=== PATIENT | male | born 1965 | race Caucasian/White ===

== ENCOUNTER 2018-04-29 17:58 | Emergency (ER) | payer MEDICARE, MEDICAID, SELFPAY ==
[2018-04-29 18:06] VITALS: BP 155/71; PULSE 66; RESP 16; TEMP 37.3; O2SAT 97
--- NOTE | 2018-04-29 19:01 | DI.REPORT_ITS ---
SYMPTOM/DIAGNOSIS: SKIN INFECTION, ? FREE AIR RIGHT TIBIA/FIBULA: Soft tissue swelling is demonstrated. The bony structures are unremarkable with no evidence of an acute fracture or dislocation. There is no evidence of free air. No soft tissue foreign body is evident. SUMMARY: Superficial edema. No other acute abnormality seen.
--- NOTE | 2018-04-29 19:05 | ED.GENADUL_ITS ---
Disposition Clinical Impression: Bilateral lower extremity edema, Ulcers of both lower legs, Cellulitis of leg, right Disposition: HOME Condition: Fair Instructions: Cellulitis (ED) Additional Instructions: Encourage elevation of lower extremities. Keep compressive dressings on until evaluated a wound. I have asked her care according to help facilitate follow-up , he should be seen this week by wound care. Take antibiotics as prescribed. Even if symptoms improve please take the entire course. Encourage water intake. If you develop fever/chills, increased pain, spreading of the redness or other new/worsening symptoms please seek care urgently once again. Please monitor glucose closely. Follow up with primary care the beginning of next week for reassessment and to recheck your potassium levels as this can go up with antibiotics. Take probiotics while on antibiotics. Prescriptions: Cephalexin [Keflex] 500 mg PO BID #14 capsule Sulfameth/Trimeth Ds [Bactrim Ds Tablet] 1 each PO BID #14 tab Referrals: Dmitriy Oliver [Primary Care Provider] - Benjamín Vazquez DO [ [facility] STAFF PHYSICIAN] - Medical Decision Making - Lab Data Laboratory Tests 04/29/18 04/29/18 19:15 19:15 WBC 8.47 RBC 4.10 L Hgb 12.3 L Hct 37.1 L MCV 90.5 MCH 30.0 MCHC 33.2 RDW 13.2 Plt Count 335 MPV 10.8 Immature Gran % 0.1 Neutrophils % 71.7 Lymphocytes % 17.9 Monocytes % 6.4 Eosinophils % 3.4 Basophils % 0.5 Absolute Neutrophils 6.07 Absolute Lymphocytes 1.52 Absolute Monocytes 0.54 Absolute Eosinophils 0.29 Absolute Basophils 0.04 Sodium 137 Potassium 4.6 Chloride 103 Carbon Dioxide 25.9 Anion Gap 8.1 BUN 9 Creatinine 1.24 Estimated GFR/1.73 m2 >= 60.00 Glucose 325 H Calcium 8.4 L Total Bilirubin 0.2 AST 21 ALT 42 Alkaline Phosphatase 62 Total Protein 6.8 Albumin 3.1 L Results reviewed for labs ordered during visit: Yes - Radiology Data Radiology results: report reviewed X-ray reviewed by radiologist. They advised that Bones are unremarkable no acute fracture. No dislocation. Mild edema seen superficial soft tissues about the leg. No radiopaque foreign body. No plain film evidence of free air.. - Medical Decision Making Patient presents today with chief complaint of bilateral lower extremity edema and wounds. Was been present for the past month. Has not been evaluated by primary care. I am concerned that 1 of the wounds on the right lower extremity is infected with surrounding cellulitis. Running the area of opening the skin is warm, tender and erythematous. Patient will be treated for infection. He reports that these initially began as a bubble and then developed into the eye is opened wounds that does continue to grow. He is feeling the bubbles I am unable to appreciate any crepitus on exam. However, given his description I feel that x-ray to evaluate for any free air is appropriate. We will also evaluate baseline labs. Discussed this plan with the patient and his daughter were in agreement X-rays not suggestive of any free air. No evidence of necrotizing fasciitis. Laboratory evaluation significant for elevated glucose. Patient reports that is around this time that he typically reduces his insulin this is probably why it is elevated. Advised he try to monitor this more closely as his diabetes is likely contributing to his current condition. In regard to his leg wounds, patient will be placed on antibiotics. I would like him to follow-up with wound care soon as possible. Have asked her intensive care nurse help facilitate follow-up. Patient will be placed on Keflex and Bactrim. I did discuss with Dr. Vicente as I am considering placing the patient on Bactrim as he is on a KENNEDI inhibitor. Potassium today is 4.6. Dr. Vicente to discuss alternative options and feel that this is the safest option for the patient. I have asked that he follow-up with primary care beginning next week to reassess potassium levels. Nursing staff has dressed the wounds and applied compression dressings. I encouraged elevation as much as possible of the lower extremities. We discussed new/worsening symptoms and when to seek care urgently once again. All of their questions and concerns were addressed in agreement this plan. History of Present Illness - General Chief complaint: Cellulitis Stated complaint: SKIN LESIONS Time Seen by Provider: 04/29/18 18:59 Source: patient, family, RN notes reviewed Mode of arrival: ambulatory Limitations: no limitations - History of Present Illness Initial comments: Patient is a 52-year-old male, covered by his daughter, with chief complaint of bilateral lower extremity skin openings. Patient has history of diabetes, anxiety, depression, hypertension, osteomyelitis, depression, GERD, neuropathy, hyperlipidemia. Patient has had removal of his second toe right foot secondary to infection. This was several years ago. 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 Patient reports that for the past month he has been noting a small bump form on his skin which then wraps and enlarges into a large open wound. States these open wounds then state chronically. He does endorse discomfort. States that he has been having some bilateral lower extremity edema, particularly in the ankles. He reports that this is typical. Patient walks with a cane at baseline. He is noted surrounding erythema particularly along the lateral aspect of the right lower extremity. Patient does have chronic neuropathy, no change in his recently. He denies any fevers or chills. Denies any chest pain , shortness of breath, nausea/vomiting. Denies any fatigue, weight loss or other systemic problems. Denies any trauma to the lower extremities. - Related Data Blood-Glucose Meter [Blood Glucose Meter] 1 each ONCE #1 each 01/12/15 Calcium Carb *Tums* [Tums] 500 mg CH Q4H PRN PRN chew 04/22/15 Lisinopril/Hydrochlorothiazide [Lisinopril-Hctz 20-12.5 mg Tab] 1 tab-cap PO DAILY #90 tab-cap 07/09/17 Amlodipine Besylate 5 mg PO DAILY #90 tab-cap 09/16/17 Dextrose [Glucose] 4 gm PO BID PRN #60 tab.chew 10/31/17 Pantoprazole Sodium 40 mg PO DAILY #90 tabcr 10/31/17 Insulin Glargine [Lantus Solostar] 30 u SC HS #2 vial 12/08/17 Mirtazapine 30 mg PO HS #30 tab-cap 01/05/18 Sertraline HCl [Zoloft] 200 mg PO DAILY #180 tab-cap 01/27/18 Amitriptyline [Elavil] 10 mg PO HS #90 tab-cap 02/24/18 Gabapentin [Neurontin] 1,600 mg PO HS #180 tab-cap 02/24/18 Insulin Aspart [NovoLOG Flexpen] 5 units SC 0800,1200,1700 #10 syr 02/24/18 Lancets [Onetouch Lancets] 1 each MC BID #100 each 02/24/18 Onetouch Ultra Test Strips 1 each MC BID #100 strip 02/24/18 Pen Needle, Diabetic [Insulin Pen Needle] 1 each SC TID #100 ndl 02/24/18 Pravastatin Sodium [Pravachol] 20 mg PO QPM #90 tab-cap 02/24/18 Nicotine Polacrilex [Nicotine Gum] 4 mg PO q 1-2 h prn #100 piece of gum MDD 10 pieces 02/27/18 Clonazepam [Klonopin] 1 tab PO BID PRN #60 tab-cap 04/14/18 Cephalexin [Keflex] 500 mg PO BID #14 capsule 04/29/18 Sulfameth/Trimeth Ds [Bactrim Ds Tablet] 1 each PO BID #14 tab 04/29/18 Allergies Allergy/AdvReac Type Severity Reaction Status Date / Time cinnamon Allergy Intermediate rash in Unverified 04/29/18 18:10 mouth Review of Systems Constitutional: no symptoms reported. denies: chills, fever, malaise Eyes: denies: vision change Respiratory: no symptoms reported. denies: cough, shortness of breath Cardiovascular: denies: chest pain, palpitations, dyspnea on exertion Gastrointestinal: denies: abdominal pain, nausea, vomiting Genitourinary: denies: urgency (denies urinary or bowel changes) Musculoskeletal: as per HPI Skin: as per HPI Neurological: as per HPI Past Medical History - Past Medical History Medical history: diabetes, GERD, hyperlipidemia, hypertension Neuropathy, osteomyelitis Surgical history: non-contributory Psychiatric history: anxiety, depression General Exam - General Limitations: no limitations General appearance: alert, in no apparent distress - Head Head exam: Present: atraumatic - Eye Eye exam: Present: normal apperance - Respiratory Respiratory exam: Present: normal lung sounds bilaterally. Absent: respiratory distress - Cardiovascular Cardiovascular Exam: Present: regular rate, normal rhythm, normal heart sounds - Extremities Exam Extremities exam: Absent: normal inspection (Exam the patient's bilateral lower extremities significant for bilateral lower extremity edema. Patient has multiple areas of ulceration. None of these ulcers are weeping. Bones appear quite dry. On the left lower extremity he has a wound on the lateral aspect that is 4 x 2 cm, irregularly-shaped. On the right, patient has 2 primary ulcers. One in the inferior lateral aspect of the right leg is 2.5 x 2 cm. This was surrounded with erythema, warmth and discomfort with palpation. Ulcer more proximal to this is not to be 2 cm x 1 cm. Is good range of motion. No posterior calf tenderness.) - Neurological Exam Neurological exam: Present: alert, abnormal gait (Patient ambulates with cane. Patient and his daughter reports this is unchanged from baseline) - Psychiatric Psychiatric exam: Present: normal affect, normal mood - Skin Skin exam: Absent: intact (As above) Course Vital Signs - 24 hr 04/29/18 18:06 Temperature 37.3 C Pulse 66 Respiratory 16 Rate Blood Pressure 155/71 Pulse Oximetry 97
[2018-04-29 19:31] LABS: Abs Immature Grans 0.01 k/cumm (0.0-0.09); Absolute Basophil Count 0.04 k/cumm (0.0-0.2); Absolute Eosinophil Count 0.29 k/cumm (0.0-0.7); Absolute Lymphocyte Count 1.52 k/cumm (1.2-3.4); Absolute Monocyte Count 0.54 k/cumm (0.11-0.7); Absolute Neutrophil Count 6.07 k/cumm (1.2-6.7); Basophils % 0.5; Eosinophils % 3.4; HCT 37.1 % (40.0-50.0); HGB 12.3 g/dL (13.5-17.5); Immature Grans % 0.1; Lymphocytes % 17.9; Mean Corp. HGB Concentration 33.2 g/dL (32.0-36.0); Mean Corpuscular Volume 90.5 fL (80-95); Mean Platelet Volume 10.8 fL (8.0-11.0); Monocytes % 6.4; Neutrophils % 71.7; Platelet Count 335 x1000/uL (130-400); RBC Distribution Width 13.2 % (11.8-14.1); White Blood Cell Count 8.47 k/cumm (4.4-10.8)
[2018-04-29 19:44] LABS: ALT 42 U/L (12-78); AST 21 U/L (15-37); Albumin 3.1 g/dL (3.4-5.0); Alkaline Phosphatase 62 U/L (46-116); Anion Gap 8.1 mmol/L (3-11); BUN 9 mg/dL (7-18); Bilirubin, Total 0.2 mg/dL (0.2-1.0); CO2 25.9 mmol/L (21.0-32.0); CREATININE 1.24 mg/dL (0.70-1.30); Calcium 8.4 mg/dL (8.5-10.1); Chloride 103 mmol/L (98-107); Glucose 325 mg/dL (70-100); Potassium 4.6 mmol/L (3.5-5.1); Sodium 137 mmol/L (136-145); Total Protein 6.8 g/dL (6.4-8.2)
--- NOTE | 2018-04-29 20:26 | DI.VRAD_ITS ---
EXAM: XR Right Tibia and Fibula, 2 Views CLINICAL HISTORY: 52 years old, male; Pain; Lower leg; Right; Patient HX: Skin infection, questioning free air. TECHNIQUE: Frontal and lateral views of the right tibia and fibula. COMPARISON: No relevant prior studies available. FINDINGS: Bones/joints: Unremarkable. No acute fracture. No dislocation. Soft tissues: Mild edema is seen in the superficial soft tissues about the leg. No radiopaque foreign body. Other findings: No plain film evidence of free air as queried. IMPRESSION: Superficial edema, otherwise no acute findings. Dictated and Authenticated by: Jonathan Em MD. Ordering:JYOTHI GRANADO MD
[2018-04-29] MEDS: Sulfameth/Trimeth DS TAB 2 TAB PO (21:30)
[2018-04-29] MEDS: Cephalexin 500 MG CAP 1000 MG PO (21:30)
[2018-04-29 21:33] VITALS: BP 155/71; PULSE 66; RESP 16; TEMP 37.3; O2SAT 97
--- NOTE | 2018-04-30 10:42 | PDOC.ERCMPRO ---
Care Management Progress Note 04/30-Vivi requested assistance with a PCP (Benito) f/u in 1-2 days for chronic bilateral lower extremity wounds. Patient will also need wound care. Referral faxed to [facility] this am for wound care and f/u appt.
--- NOTE | 2018-04-30 11:23 | CMPROGNOTE_ITS ---
Care Management Progress Note 04/30-Vivi requested assistance with a PCP (Benito) f/u in 1-2 days for chronic bilateral lower extremity wounds. Patient will also need wound care. Referral faxed to [facility] this am for wound care and f/u appt.
== END 2018-04-29 21:33 | disposition home or self-care (01) ==
PROVIDERS: Physician Assistant; Emergency Provider Student in an Organized Health Care Education/Training Program; PCP Family Medicine
DX: R60.0 Localized edema (principal); L97.229 Non-pressure chronic ulcer of left calf with unspecified severity; L97.219 Non-pressure chronic ulcer of right calf with unspecified severity; L03.115 Cellulitis of right lower limb; I10 Essential (primary) hypertension; E11.622 Type 2 diabetes mellitus with other skin ulcer; Z79.4 Long term (current) use of insulin
CPT/HCPCS: 36415; 80053; 99284; 73590; 85025

== ENCOUNTER → 2018-05-01 12:37 | Outpatient (REF) | payer MEDICARE, MEDICAID, SELFPAY | LOC: LBN 12:37 | PROVIDERS: PCP Family Medicine; Visit Provider Family Medicine | DX: S81.801D Unspecified open wound, right lower leg, subsequent encounter (principal) | CPT/HCPCS: 87077; 87070; 87186; 87205 ==

== ENCOUNTER 2018-06-29 15:02 | Emergency (ER) | payer MEDICARE, SELFPAY ==
[2018-06-29 15:42] VITALS: BP 166/65; PULSE 68; RESP 22; TEMP 36.8; O2SAT 97
--- NOTE | 2018-06-29 16:09 | W.ED.GENAD ---
Discharge Plan Discharge Details Chief Complaint: Diabetes Primary Care Provider: Dmitriy Oliver ED Provider: Homar Gan Home Meds and New Rx's Prescriptions: Continue lisinopril-hydrochlorothiazide 1 EACH tablet 1 tab-cap PO DAILY Qty: 90 RF: 3 amlodipine 5 MG tablet 5 mg PO DAILY Qty: 90 RF: 3 pantoprazole 40 MG tablet,delayed release (DR/EC) 40 mg PO DAILY Qty: 90 RF: 3 glucose 4 GM tablet,chewable 4 gm PO BID PRNQty: 60 RF: 2 mirtazapine 30 MG tablet 30 mg PO HS Qty: 30 RF: 11 sertraline [Zoloft] 100 MG tablet 200 mg PO DAILY Qty: 180 RF: 4 insulin aspart U-100 [Novolog Flexpen U-100 Insulin] 300 UNITS/3 ML insulin pen 5 units Sub-Q 0800,1200,1700 Qty: 10 RF: 5 pen needle, diabetic 1 EACH needle 1 ea Sub-Q TID Qty: 100 RF: 11 clonazepam [Klonopin] 1 MG tablet 1 tab PO BID PRNQty: 60 RF: 2 Lactobacillus acidophilus 1 EACH capsule 1 ea PO TID Qty: 30 RF: 0 gabapentin [Neurontin] 800 MG tablet 1,600 mg PO HS Qty: 180 RF: 3 amitriptyline 10 MG tablet 10 mg PO HS Qty: 90 RF: 3 pravastatin [Pravachol] 20 MG tablet 20 mg PO QPM Qty: 90 RF: 4 lancets [OneTouch UltraSoft Lancets] 1 EACH misc 1 ea Miscellaneous BID Qty: 100 RF: 12 ONETOUCH ULTRA TEST STRIPS 1 EACH strip 1 ea Miscellaneous BID Qty: 100 RF: 12 blood-glucose meter misc 1 ea Miscellaneous ONCE Qty: 1 RF: 0 nicotine (polacrilex) 4 mg gum 4 mg PO q 1-2 h prn MDD 10 pieces Qty: 100 RF: 11 calcium carbonate 500 MG tablet,chewable 500 mg CH Q4H PRN PRN (Reason: DYSPEPSIA) RF: 0 sulfamethoxazole-trimethoprim 1 TAB tablet 1 ea PO BID Qty: 14 RF: 0 insulin glargine [Lantus Solostar U-100 Insulin] 100 UNIT/1 ML insulin pen 30 u Sub-Q HS Qty: 2 RF: 3 Discharge Instructions Additional Instructions: [facility] has arranged to fill your prescription. Please resume diabetic control as previously prescribed with long acting insulin in the evening. Call your doctors office in the morning for a followup appointment this week. Return to the ER for any acute concerns. Medical Decision Making 52yom presents from home with family after running out of coverage of typical 35u Lantus QHS and now taking 5u QHS for 4-5 days, with humalog on 'loose' sliding scale. Otherwise well, denies systemic complaints. Exam reassuring and he is in no distress. Screening labs obtained and patient seen by care management. CBC reveals WBC 9. Comp is reassuring, glucose 242. No gap. Stable and appropriate for outpatient management. Care management arranged for [facility] to fill patients Rx, he will followup with PMD. Lab Data Lab results reviewed: Yes I reviewed the patient's lab results. Laboratory Tests Range/Units 06/29/18 06/29/18 16:13 16:13 WBC (4.4-10.8) k/cumm 9.92 RBC (4.50-6.00) m/cumm 4.77 Hgb (13.5-17.5) g/dL 14.1 Hct (40.0-50.0) % 42.8 MCV (80-95) fL 89.7 MCH (27.0-33.0) pg 29.6 MCHC (32.0-36.0) g/dL 32.9 RDW (11.8-14.1) % 13.6 Plt Count (130-400) x1000/uL 359 MPV (8.0-11.0) fL 10.2 Immature Gran % 0.2 Neutrophils % 73.8 Lymphocytes % 17.3 Monocytes % 5.5 Eosinophils % 2.7 Basophils % 0.5 Absolute Neutrophils (1.2-6.7) k/cumm 7.31 H Absolute Lymphocytes (1.2-3.4) k/cumm 1.72 Absolute Monocytes (0.11-0.7) k/cumm 0.55 Absolute Eosinophils (0.0-0.7) k/cumm 0.27 Absolute Basophils (0.0-0.2) k/cumm 0.05 Sodium (136-145) mmol/L 139 Potassium (3.5-5.1) mmol/L 4.7 Chloride (98-107) mmol/L 103 Carbon Dioxide (21.0-32.0) mmol/L 28.5 Anion Gap (3-11) mmol/L 7.5 BUN (7-18) mg/dL 11 Creatinine (0.70-1.30) mg/dL 1.19 Estimated GFR/1.73 m2 (mL/min/1.73m2) >= 60.00 Glucose (70-100) mg/dL 242 H Calcium (8.5-10.1) mg/dL 9.2 Total Bilirubin (0.2-1.0) mg/dL 0.3 AST (15-37) U/L 21 ALT (12-78) U/L 46 Alkaline Phosphatase (46-116) U/L 79 Total Protein (6.4-8.2) g/dL 7.7 Albumin (3.4-5.0) g/dL 3.9 HPI General Mode of arrival: ambulatory. Date/Time Provider Initiated Documentation: 06/29/18 15:48. Limitations to Documentation: no limitations. Information obtained by: patient and family. History of Present Illness described as moderate, Quality is described as constant, Patient started experiencing this day(s) and it has been constant. No relieving factors improve symptom(s), No exacerbating factors reported . HPI Narrative: 52yom with IDDM, has run out of coverage for longacting Lantus and dropped dosae from 35u QHS to 5u QHS for past 5 days. Glucose now 400's. No weakness, thirst, fever, chills. Related Data Home Medications Medication Instructions Recorded Confirmed calcium carbonate 500 mg CH Q4H PRN PRN chew 04/22/15 04/29/18 lisinopril-hydrochlorothiazide 1 tab-cap PO DAILY #90 tab-cap 07/09/17 amlodipine 5 mg PO DAILY #90 tab-cap 09/16/17 glucose 4 gm PO BID PRN #60 tab.chew 10/31/17 pantoprazole 40 mg PO DAILY #90 tabcr 10/31/17 mirtazapine 30 mg PO HS #30 tab-cap 01/05/18 sertraline [Zoloft] 200 mg PO DAILY #180 tab-cap 01/27/18 insulin aspart U-100 [Novolog 5 units SUB-Q 0800,1200,1700 #10 02/24/18 Flexpen U-100 Insulin] syr pen needle, diabetic #100 ndl 02/24/18 clonazepam [Klonopin] 1 tab PO BID PRN #60 tab-cap 04/14/18 sulfamethoxazole-trimethoprim 1 ea PO BID #14 tab 04/29/18 Lactobacillus acidophilus 1 ea PO TID #30 tab-cap 04/30/18 amitriptyline 10 mg PO HS #90 tab-cap 05/18/18 gabapentin [Neurontin] 1,600 mg PO HS #180 tab-cap 05/18/18 pravastatin [Pravachol] 20 mg PO QPM #90 tab-cap 05/18/18 lancets [OneTouch UltraSoft #100 ea 05/21/18 Lancets] blood-glucose meter #1 ea 06/05/18 nicotine (polacrilex) 4 mg gum 4 mg PO q 1-2 h prn #100 piece of 06/16/18 gum MDD 10 pieces insulin glargine [Lantus Solostar 30 u SUB-Q HS #2 vial 06/29/18 U-100 Insulin] Previous Rx's Medication Instructions Recorded calcium carbonate 500 mg CH Q4H PRN PRN chew 04/22/15 lisinopril-hydrochlorothiazide 1 tab-cap PO DAILY #90 tab-cap 07/09/17 amlodipine 5 mg PO DAILY #90 tab-cap 09/16/17 pantoprazole 40 mg PO DAILY #90 tabcr 10/31/17 mirtazapine 30 mg PO HS #30 tab-cap 01/05/18 sertraline [Zoloft] 200 mg PO DAILY #180 tab-cap 01/27/18 insulin aspart U-100 [Novolog 5 units SUB-Q 0800,1200,1700 #10 02/24/18 Flexpen U-100 Insulin] syr pen needle, diabetic #100 ndl 02/24/18 sulfamethoxazole-trimethoprim 1 ea PO BID #14 tab 04/29/18 Lactobacillus acidophilus 1 ea PO TID #30 tab-cap 04/30/18 amitriptyline 10 mg PO HS #90 tab-cap 05/18/18 gabapentin [Neurontin] 1,600 mg PO HS #180 tab-cap 05/18/18 pravastatin [Pravachol] 20 mg PO QPM #90 tab-cap 05/18/18 lancets [OneTouch UltraSoft #100 ea 05/21/18 Lancets] blood-glucose meter #1 ea 06/05/18 nicotine (polacrilex) 4 mg gum 4 mg PO q 1-2 h prn #100 piece of 06/16/18 gum MDD 10 pieces insulin glargine [Lantus Solostar 30 u SUB-Q HS #2 vial 06/29/18 U-100 Insulin] Allergies Allergy/AdvReac Type Severity Reaction Status Date / Time cinnamon Allergy Intermediate rash in Unverified 04/29/18 18:10 mouth General Stated Complaint: Diabetes DION: 4 Review of Systems Review of Systems 8 reviewed and o/w - PFSH Social History Smoking/Tobacco Use Status: Never how long ago did patient quit smoking: HASN'T CHEWED X 1.5 MOS 02/24/18 Exam Const General: cooperative, healthy appearing, comfortable and no acute distress HENMT Head: normal to inspection and normocephalic Chest Chest: normal inspection of the chest and normal palpation of entire chest wall Resp Effort & Inspection: normal respiratory effort and able to speak in complete sentences Auscultation: clear to auscultation bilaterally Cardio Rate: regular rate Rhythm: regular rhythm GI Inspection: normal to inspection Palpation: soft and no hepatosplenomegaly Skin General skin exam: no rashes or lesions noted Lesions: no lesions Rashes: no rashes Other: RLE wrapped, no erythema or warmth Extrem General: normal to inspection and full ROM Course Vital Signs Temperature 36.8 C 06/29/18 15:42 Pulse 68 06/29/18 15:42 Respiratory Rate 22 06/29/18 15:42 Blood Pressure 166/65 H 06/29/18 15:42 Pulse Oximetry 97 06/29/18 15:42 Temperature 36.8 C 06/29/18 15:42 Temperature Source Temporal Artery Scan 06/29/18 15:42 Pulse 68 06/29/18 15:42 Respiratory Rate 22 06/29/18 15:42 Blood Pressure 166/65 H 06/29/18 15:42 Pulse Oximetry 97 06/29/18 15:42 Oxygen Delivery Method Room Air 06/29/18 15:42 Oxygen Flow Rate 0 06/29/18 15:42 Pain Level 0 06/29/18 15:42
[2018-06-29 16:17] LABS: Abs Immature Grans 0.02 k/cumm (0.0-0.09); Absolute Basophil Count 0.05 k/cumm (0.0-0.2); Absolute Eosinophil Count 0.27 k/cumm (0.0-0.7); Absolute Lymphocyte Count 1.72 k/cumm (1.2-3.4); Absolute Monocyte Count 0.55 k/cumm (0.11-0.7); Absolute Neutrophil Count 7.31 k/cumm (1.2-6.7); Basophils % 0.5; Eosinophils % 2.7; HCT 42.8 % (40.0-50.0); HGB 14.1 g/dL (13.5-17.5); Immature Grans % 0.2; Lymphocytes % 17.3; Mean Corp. HGB Concentration 32.9 g/dL (32.0-36.0); Mean Corpuscular Hemoglobin 29.6 pg (27.0-33.0); Mean Corpuscular Volume 89.7 fL (80-95); Mean Platelet Volume 10.2 fL (8.0-11.0); Monocytes % 5.5; Neutrophils % 73.8; Platelet Count 359 x1000/uL (130-400); RBC 4.77 m/cumm (4.50-6.00); RBC Distribution Width 13.6 % (11.8-14.1); White Blood Cell Count 9.92 k/cumm (4.4-10.8)
[2018-06-29 16:33] LABS: ALT 46 U/L (12-78); AST 21 U/L (15-37); Albumin 3.9 g/dL (3.4-5.0); Alkaline Phosphatase 79 U/L (46-116); Anion Gap 7.5 mmol/L (3-11); BUN 11 mg/dL (7-18); Bilirubin, Total 0.3 mg/dL (0.2-1.0); CO2 28.5 mmol/L (21.0-32.0); CREATININE 1.19 mg/dL (0.70-1.30); Calcium 9.2 mg/dL (8.5-10.1); Chloride 103 mmol/L (98-107); Glucose 242 mg/dL (70-100); Potassium 4.7 mmol/L (3.5-5.1); Sodium 139 mmol/L (136-145); Total Protein 7.7 g/dL (6.4-8.2)
--- NOTE | 2018-06-29 16:46 | PDOC.ERCMPRO ---
Care Management Progress Note s/o Met with Narciso and his daughter Digna. He has not been able to afford his Lantus insulin and ended up in the Emergency Department with a glucose over 400. His Medicaid benefit has been discontinued for some reason and Digna has called and left a message at [facility] for assistance in submitting the required paperwork. She specifically is requesting [facility] for help. Major issue today is the need for Lantus insulin. [facility] spoke with Tracy who will fill his script and work with [employer] tomorrow on the details for payment. A: 52 y.o. male seen in ED for critical glucose levels P: Daughter, Digna, will accompany Moises to [facility] and have the prescription filled. She will also accompany her father to [facility] tomorrow to seek assistance from [employer] to fill out the necessary Medicaid paperwork to regain the benefit.
[2018-06-29 16:47] VITALS: BP 166/65; PULSE 68; RESP 22; TEMP 36.8; O2SAT 97
--- NOTE | 2018-06-29 16:56 | CMPROGNOTE_ITS ---
Care Management Progress Note s/o Met with Narciso and his daughter Digna. He has not been able to afford his Lantus insulin and ended up in the Emergency Department with a glucose over 400. His Medicaid benefit has been discontinued for some reason and Digna has called and left a message at [facility] for assistance in submitting the required paperwork. She specifically is requesting [employer] for help. Major issue today is the need for Lantus insulin. Contacted [facility] and spoke with Tracy who will fill his script and work with [employer] tomorrow on the details for payment. A: 52 y.o. male seen in ED for critical glucose levels P: Daughter, Digna, will accompany Moises to [facility] and have the prescription filled. She will also accompany her father to [facility] tomorrow to seek assistance from [employer] to fill out the necessary Medicaid paperwork to regain the benefit.
== END 2018-06-29 16:47 ==
PROVIDERS: Emergency Provider Emergency Medicine; PCP Family Medicine
DX: E11.65 Type 2 diabetes mellitus with hyperglycemia (principal); T38.3X6A Underdosing of insulin and oral hypoglycemic [antidiabetic] drugs, initial encounter; Z79.4 Long term (current) use of insulin; I10 Essential (primary) hypertension
CPT/HCPCS: 36415; 80053; 99283; 85025

== ENCOUNTER 2018-08-27 12:36 | Emergency (ER) | payer MEDICARE, SELFPAY ==
[2018-08-27 12:43] VITALS: BP 151/66; PULSE 58; RESP 17; TEMP 36.9; O2SAT 98
--- NOTE | 2018-08-27 12:43 | W.ED.GENAD ---
Discharge Plan Disposition Patient Disposition: HOME Condition: Stable Discharge Details Chief Complaint: GenMedical Clinical Impression: Diabetic foot ulcer, Elevated blood sugar, Creatinine elevation, Hyponatremia Primary Care Provider: Dmitriy Oliver ED Provider: Carolynn Amin Home Meds and New Rx's Prescriptions: New cephalexin [Keflex] 500 mg capsule 500 mg PO QID Qty: 55 RF: 0 Continue lisinopril-hydrochlorothiazide 1 EACH tablet 1 tab-cap PO DAILY Qty: 90 RF: 3 amlodipine 5 MG tablet 5 mg PO DAILY Qty: 90 RF: 3 pantoprazole 40 MG tablet,delayed release (DR/EC) 40 mg PO DAILY Qty: 90 RF: 3 glucose 4 GM tablet,chewable 4 gm PO BID PRNQty: 60 RF: 2 mirtazapine 30 MG tablet 30 mg PO HS Qty: 30 RF: 11 sertraline [Zoloft] 100 MG tablet 200 mg PO DAILY Qty: 180 RF: 4 insulin aspart U-100 [Novolog Flexpen U-100 Insulin] 300 UNITS/3 ML insulin pen 5 units Sub-Q 0800,1200,1700 Qty: 10 RF: 5 pen needle, diabetic 1 EACH needle 1 ea Sub-Q TID Qty: 100 RF: 11 Lactobacillus acidophilus 1 EACH capsule 1 ea PO TID Qty: 30 RF: 0 gabapentin [Neurontin] 800 MG tablet 1,600 mg PO HS Qty: 180 RF: 3 amitriptyline 10 MG tablet 10 mg PO HS Qty: 90 RF: 3 pravastatin [Pravachol] 20 MG tablet 20 mg PO QPM Qty: 90 RF: 4 lancets [OneTouch UltraSoft Lancets] 1 EACH misc 1 ea Miscellaneous BID Qty: 100 RF: 12 ONETOUCH ULTRA TEST STRIPS 1 EACH strip 1 ea Miscellaneous BID Qty: 100 RF: 12 blood-glucose meter misc 1 ea Miscellaneous ONCE Qty: 1 RF: 0 nicotine (polacrilex) 4 mg gum 4 mg PO q 1-2 h prn MDD 10 pieces Qty: 100 RF: 11 clonazepam [Klonopin] 1 mg tablet 1 mg PO BID PRN (Reason: anxiety) Qty: 60 RF: 0 calcium carbonate 500 MG tablet,chewable 500 mg CH Q4H PRN PRN (Reason: DYSPEPSIA) RF: 0 insulin glargine [Lantus Solostar U-100 Insulin] 100 UNIT/1 ML insulin pen 30 u Sub-Q HS Qty: 2 RF: 3 Discontinued sulfamethoxazole-trimethoprim 1 TAB tablet 1 ea PO BID Qty: 14 RF: 0 Discharge Instructions Instructions: Cephalexin (By mouth), Hyponatremia (ED), Chronic Wound Care (ED), Diabetic Foot Ulcers (ED), Diabetic Hyperglycemia (ED), Diabetic Kidney Disease (ED) Additional Instructions: Please return to the emergency department if you develop any new or worsening symptoms or if you become otherwise concerned. It is extremely important that you make an appointment to be seen by your primary care doctor within the next 1-2 weeks in follow-up for this visit. Referrals: Dmitriy Oliver [Primary Care Provider] - Medical Decision Making Narciso Russo is a 52-year-old man with a history of hypertension, hyperlipidemia, insulin dependent diabetes presenting to the emergency department with foot ulcers. On exam patient is well and nontoxic appearing. There is a 5 mm deep ulceration to the distal end of the right great toe with central granulation tissue, no purulence, no surrounding erythema. 2x 3 mm area on right fifth toe with discoloration, no ulceration, no drainage, no surrounding erythema. Right second toe status post amputation. Doubt DKA, significant metabolic/slight disturbance, or osteomyelitis at this time. Exam/history not consistent with sepsis. Diabetic foot ulcers have the appearance of being low risk for infection, however given presence for 3 weeks and depth of ulcer on great toe, will start Keflex. Plan for x-ray and fingerstick. X-ray shows no bony erosion at ulcer sites, no gas, questionable bony erosion of the great toe distal proximal phalanx, however there are no skin changes at this site. Fingerstick shows blood sugar at 400. Patient reports that he has not been checking his blood sugar for a week because he is trying to ration his diabetic test strips. Will send basic labs. Labs show hyponatremia at 132, creatinine 1.4, glucose 448. Normal anion gap. Creatinine has been over 2 in the past, 1.7 10/09 and 1.2 07/09. Plan for saline bolus, sliding scale insulin. Patient reports that he lives quite far away and needs to leave at this time because his ride is here, he states that he will be sure to continue to drink plenty of fluids and will use his own insulin that he has with him. Had a lengthy discussion with the patient regarding his abnormal lab tests and his diabetic foot ulcers, return to the emergency department precautions, and importance of outpatient follow-up with his PCP. He is amenable to the plan. Walked out of the emergency department without issue. Patient placed on CM list for PCP follow-up within 1 week. Medical Records Medical records reviewed: Yes I reviewed the patient's medical records. Imaging Data Radiologic Study: Attestation: I personally reviewed and interpreted this imaging study as follows: Radiologist's impression: RIGHT FOOT: Comparison is made with 11/13/14. There has been previous amputation of the second toe which appears unchanged. Soft tissue ulcer is seen near the tuft of the distal phalanx. No adjacent bony erosion is seen. There is an apparent erosion at the medial aspect of the distal proximal phalanx not seen on the previous exam. IMPRESSION: Question of bony erosion proximal phalanx of the great toe. No abnormality is seen involving the fifth toe. Lab Data Lab results reviewed: Yes I reviewed the patient's lab results. Laboratory Tests Range/Units 08/27/18 08/27/18 14:35 14:35 WBC (4.4-10.8) k/cumm 8.57 RBC (4.50-6.00) m/cumm 4.65 Hgb (13.5-17.5) g/dL 13.6 Hct (40.0-50.0) % 40.7 MCV (80-95) fL 87.5 MCH (27.0-33.0) pg 29.2 MCHC (32.0-36.0) g/dL 33.4 RDW (11.8-14.1) % 12.9 Plt Count (130-400) x1000/uL 369 MPV (8.0-11.0) fL 10.6 Immature Gran % 0.1 Neutrophils % 68.8 Lymphocytes % 22.4 Monocytes % 5.6 Eosinophils % 2.7 Basophils % 0.4 Absolute Neutrophils (1.2-6.7) k/cumm 5.90 Absolute Lymphocytes (1.2-3.4) k/cumm 1.92 Absolute Monocytes (0.11-0.7) k/cumm 0.48 Absolute Eosinophils (0.0-0.7) k/cumm 0.23 Absolute Basophils (0.0-0.2) k/cumm 0.03 Sodium (136-145) mmol/L 132 L Potassium (3.5-5.1) mmol/L 4.3 Chloride (98-107) mmol/L 95 L Carbon Dioxide (21.0-32.0) mmol/L 29.4 Anion Gap (3-11) mmol/L 7.6 BUN (7-18) mg/dL 22 H Creatinine (0.70-1.30) mg/dL 1.41 H Estimated GFR/1.73 m2 (mL/min/1.73m2) 52.78 Glucose (70-100) mg/dL 448 H Calcium (8.5-10.1) mg/dL 9.4 HPI General Mode of arrival: ambulatory. Date/Time Provider Initiated Documentation: 08/27/18 12:42. Limitations to Documentation: no limitations. Information obtained by: patient, RN notes reviewed and old records reviewed. HPI Narrative: Narciso Russo is a 52-year-old man with history of hypertension, hyperlipidemia, insulin dependent diabetes presenting to the emergency department with foot ulcers. Patient reports that 3 weeks ago he developed blisters on his right first and fifth toe. Patient reports that he popped the blisters, and has since developed ulcerations in the areas where the sutures are located. Patient reports that he has diabetic neuropathy of his feet chronically, and he has no pain in the areas of ulceration. Has had no drainage, no surrounding redness. No fevers. Patient reports that he came into the emergency department today because he was sent here by his home health nurse for evaluation of the ulcers. Feels in his usual state of health: No pain, no shortness of breath, no rash, no cough, no new numbness/tingling, no weakness. Has been eating and drinking as usual. No recent travel. Patient is unsure why he developed the blisters on his toes to begin with. Related Data Home Medications Medication Instructions Recorded Confirmed calcium carbonate 500 mg CH Q4H PRN PRN chew 04/22/15 08/27/18 lisinopril-hydrochlorothiazide 1 tab-cap PO DAILY #90 tab-cap 07/09/17 08/27/18 amlodipine 5 mg PO DAILY #90 tab-cap 09/16/17 08/27/18 glucose 4 gm PO BID PRN #60 tab.chew 10/31/17 08/27/18 pantoprazole 40 mg PO DAILY #90 tabcr 10/31/17 08/27/18 mirtazapine 30 mg PO HS #30 tab-cap 01/05/18 08/27/18 sertraline [Zoloft] 200 mg PO DAILY #180 tab-cap 01/27/18 08/27/18 insulin aspart U-100 [Novolog 5 units SUB-Q 0800,1200,1700 #10 02/24/18 08/27/18 Flexpen U-100 Insulin] syr pen needle, diabetic #100 ndl 02/24/18 08/27/18 Lactobacillus acidophilus 1 ea PO TID #30 tab-cap 04/30/18 08/27/18 amitriptyline 10 mg PO HS #90 tab-cap 05/18/18 08/27/18 gabapentin [Neurontin] 1,600 mg PO HS #180 tab-cap 05/18/18 08/27/18 pravastatin [Pravachol] 20 mg PO QPM #90 tab-cap 05/18/18 08/27/18 lancets [OneTouch UltraSoft #100 ea 05/21/18 08/27/18 Lancets] blood-glucose meter #1 ea 06/05/18 08/27/18 nicotine (polacrilex) 4 mg gum 4 mg PO q 1-2 h prn #100 piece of 06/16/18 08/27/18 gum MDD 10 pieces insulin glargine [Lantus Solostar 30 u SUB-Q HS #2 vial 06/29/18 08/27/18 U-100 Insulin] clonazepam 1 mg tablet 1 mg PO BID PRN #60 tab-cap 07/14/18 08/27/18 cephalexin [Keflex] 500 mg PO QID #55 cap 08/27/18 Previous Rx's Medication Instructions Recorded calcium carbonate 500 mg CH Q4H PRN PRN chew 04/22/15 lisinopril-hydrochlorothiazide 1 tab-cap PO DAILY #90 tab-cap 07/09/17 amlodipine 5 mg PO DAILY #90 tab-cap 09/16/17 pantoprazole 40 mg PO DAILY #90 tabcr 10/31/17 mirtazapine 30 mg PO HS #30 tab-cap 01/05/18 sertraline [Zoloft] 200 mg PO DAILY #180 tab-cap 01/27/18 insulin aspart U-100 [Novolog 5 units SUB-Q 0800,1200,1700 #10 02/24/18 Flexpen U-100 Insulin] syr pen needle, diabetic #100 ndl 02/24/18 Lactobacillus acidophilus 1 ea PO TID #30 tab-cap 04/30/18 amitriptyline 10 mg PO HS #90 tab-cap 05/18/18 gabapentin [Neurontin] 1,600 mg PO HS #180 tab-cap 05/18/18 pravastatin [Pravachol] 20 mg PO QPM #90 tab-cap 05/18/18 lancets [OneTouch UltraSoft #100 ea 05/21/18 Lancets] blood-glucose meter #1 ea 06/05/18 nicotine (polacrilex) 4 mg gum 4 mg PO q 1-2 h prn #100 piece of 06/16/18 gum MDD 10 pieces insulin glargine [Lantus Solostar 30 u SUB-Q HS #2 vial 06/29/18 U-100 Insulin] clonazepam 1 mg tablet 1 mg PO BID PRN #60 tab-cap 07/14/18 cephalexin [Keflex] 500 mg PO QID #55 cap 08/27/18 Allergies Allergy/AdvReac Type Severity Reaction Status Date / Time cinnamon Allergy Intermediate rash in Unverified 08/27/18 12:53 mouth General DION: 4 Review of Systems Review of Systems Constitutional: denies fevers Eyes: denies eye pain ENT: denies facial pain, dental pain, sore throat Cardiovascular: denies chest pain, edema Respiratory: denies SOB, cough GI: denies abdominal pain, vomiting, diarrhea : denies flank pain MSK: denies back pain, neck pain, arthralgias, myalgias Skin: denies rash, reports ulcerations to toes Neuro: denies headaches, lightheadedness, weakness PFSH Social History Smoking/Tobacco Use Status: Never how long ago did patient quit smoking: HASN'T CHEWED X 1.5 MOS 6/5/18 Exam Narrative Exam Narrative: Constitutional: well and [id number], pleasant, conversing normally HENT: head atraumatic, normocephalic normal inspection, mucous membranes moist Eyes: conjunctiva normal, sclera normal, pupils 3mm b/l Neck: no stridor, normal ROM, trachea midline Chest: normal inspection Resp: normal work of breathing, LCTAB Cardio: normal rate, normal rhythm, no murmur appreciated GI: abdomen soft, non-tender, non-distended Back: normal inspection, no rash Skin: warm, dry, normal color, no rash Neuro: alert, not altered, grossly non-focal, normal tone Ext: no edema, 1.5x1cm ulceration to distal right great toe with central granulation tissue, approximately 5 mm deep, also 2x3mm skin discoloration right medial 5th toe, neither lesion with surrounding erythema, purulence, induration Psych: normal mood, normal affect, normal behavior
--- NOTE | 2018-08-27 13:35 | ED.GENADUL_ITS ---
Discharge Plan Disposition Patient Disposition: HOME Condition: Stable Discharge Details Chief Complaint: GenMedical Clinical Impression: Diabetic foot ulcer, Elevated blood sugar, Creatinine elevation, Hyponatremia Primary Care Provider: Dmitriy Oliver ED Provider: Carolynn Amin Home Meds and New Rx's Prescriptions: New cephalexin [Keflex] 500 mg capsule 500 mg PO QID Qty: 55 RF: 0 Continue lisinopril-hydrochlorothiazide 1 EACH tablet 1 tab-cap PO DAILY Qty: 90 RF: 3 amlodipine 5 MG tablet 5 mg PO DAILY Qty: 90 RF: 3 pantoprazole 40 MG tablet,delayed release (DR/EC) 40 mg PO DAILY Qty: 90 RF: 3 glucose 4 GM tablet,chewable 4 gm PO BID PRNQty: 60 RF: 2 mirtazapine 30 MG tablet 30 mg PO HS Qty: 30 RF: 11 sertraline [Zoloft] 100 MG tablet 200 mg PO DAILY Qty: 180 RF: 4 insulin aspart U-100 [Novolog Flexpen U-100 Insulin] 300 UNITS/3 ML insulin pen 5 units Sub-Q 0800,1200,1700 Qty: 10 RF: 5 pen needle, diabetic 1 EACH needle 1 ea Sub-Q TID Qty: 100 RF: 11 Lactobacillus acidophilus 1 EACH capsule 1 ea PO TID Qty: 30 RF: 0 gabapentin [Neurontin] 800 MG tablet 1,600 mg PO HS Qty: 180 RF: 3 amitriptyline 10 MG tablet 10 mg PO HS Qty: 90 RF: 3 pravastatin [Pravachol] 20 MG tablet 20 mg PO QPM Qty: 90 RF: 4 lancets [OneTouch UltraSoft Lancets] 1 EACH misc 1 ea Miscellaneous BID Qty: 100 RF: 12 ONETOUCH ULTRA TEST STRIPS 1 EACH strip 1 ea Miscellaneous BID Qty: 100 RF: 12 blood-glucose meter misc 1 ea Miscellaneous ONCE Qty: 1 RF: 0 nicotine (polacrilex) 4 mg gum 4 mg PO q 1-2 h prn MDD 10 pieces Qty: 100 RF: 11 clonazepam [Klonopin] 1 mg tablet 1 mg PO BID PRN (Reason: anxiety) Qty: 60 RF: 0 calcium carbonate 500 MG tablet,chewable 500 mg CH Q4H PRN PRN (Reason: DYSPEPSIA) RF: 0 insulin glargine [Lantus Solostar U-100 Insulin] 100 UNIT/1 ML insulin pen 30 u Sub-Q HS Qty: 2 RF: 3 Discontinued sulfamethoxazole-trimethoprim 1 TAB tablet 1 ea PO BID Qty: 14 RF: 0 Discharge Instructions Instructions: Cephalexin (By mouth), Hyponatremia (ED), Chronic Wound Care (ED) , Diabetic Foot Ulcers (ED), Diabetic Hyperglycemia (ED), Diabetic Kidney Disease (ED) Additional Instructions: Please return to the emergency department if you develop any new or worsening symptoms or if you become otherwise concerned. It is extremely important that you make an appointment to be seen by your primary care doctor within the next 1 -2 weeks in follow-up for this visit. Referrals: Dmitriy Oliver [Primary Care Provider] - Medical Decision Making Narciso Russo is a 52-year-old man with a history of hypertension, hyperlipidemia, insulin dependent diabetes presenting to the emergency department with foot ulcers. On exam patient is well and nontoxic appearing. There is a 5 mm deep ulceration to the distal end of the right great toe with central granulation tissue, no purulence, no surrounding erythema. 2x 3 mm area on right fifth toe with discoloration, no ulceration, no drainage, no surrounding erythema. Right second toe status post amputation. Doubt DKA, significant metabolic/slight disturbance, or osteomyelitis at this time. Exam/ history not consistent with sepsis. Diabetic foot ulcers have the appearance of being low risk for infection, however given presence for 3 weeks and depth of ulcer on great toe, will start Keflex. Plan for x-ray and fingerstick. X-ray shows no bony erosion at ulcer sites, no gas, questionable bony erosion of the great toe distal proximal phalanx, however there are no skin changes at this site. Fingerstick shows blood sugar at 400. Patient reports that he has not been checking his blood sugar for a week because he is trying to ration his diabetic test strips. Will send basic labs. Labs show hyponatremia at 132, creatinine 1.4, glucose 448. Normal anion gap. Creatinine has been over 2 in the past, 1.7 10/09 and 1.2 07/09. Plan for saline bolus, sliding scale insulin. Patient reports that he lives quite far away and needs to leave at this time because his ride is here, he states that he will be sure to continue to drink plenty of fluids and will use his own insulin that he has with him. Had a lengthy discussion with the patient regarding his abnormal lab tests and his diabetic foot ulcers, return to the emergency department precautions, and importance of outpatient follow-up with his PCP. He is amenable to the plan. Walked out of the emergency department without issue. Patient placed on CM list for PCP follow-up within 1 week. Medical Records Medical records reviewed: Yes I reviewed the patient's medical records. Imaging Data Radiologic Study: Attestation: I personally reviewed and interpreted this imaging study as follows: Radiologist's impression: RIGHT FOOT: Comparison is made with 11/13/14. There has been previous amputation of the second toe which appears unchanged. Soft tissue ulcer is seen near the tuft of the distal phalanx. No adjacent bony erosion is seen. There is an apparent erosion at the medial aspect of the distal proximal phalanx not seen on the previous exam. IMPRESSION: Question of bony erosion proximal phalanx of the great toe. No abnormality is seen involving the fifth toe. Lab Data Lab results reviewed: Yes I reviewed the patient's lab results. Laboratory Tests Range/Units 08/27/18 08/27/18 14:35 14:35 WBC (4.4-10.8) k/cumm 8.57 RBC (4.50-6.00) m/cumm 4.65 Hgb (13.5-17.5) g/dL 13.6 Hct (40.0-50.0) % 40.7 MCV (80-95) fL 87.5 MCH (27.0-33.0) pg 29.2 MCHC (32.0-36.0) g/dL 33.4 RDW (11.8-14.1) % 12.9 Plt Count (130-400) x1000/uL 369 MPV (8.0-11.0) fL 10.6 Immature Gran % 0.1 Neutrophils % 68.8 Lymphocytes % 22.4 Monocytes % 5.6 Eosinophils % 2.7 Basophils % 0.4 Absolute Neutrophils (1.2-6.7) k/cumm 5.90 Absolute Lymphocytes (1.2-3.4) k/cumm 1.92 Absolute Monocytes (0.11-0.7) k/cumm 0.48 Absolute Eosinophils (0.0-0.7) k/cumm 0.23 Absolute Basophils (0.0-0.2) k/cumm 0.03 Sodium (136-145) mmol/L 132 L Potassium (3.5-5.1) mmol/L 4.3 Chloride (98-107) mmol/L 95 L Carbon Dioxide (21.0-32.0) mmol/L 29.4 Anion Gap (3-11) mmol/L 7.6 BUN (7-18) mg/dL 22 H Creatinine (0.70-1.30) mg/dL 1.41 H Estimated GFR/1.73 m2 (mL/min/1.73m2) 52.78 Glucose (70-100) mg/dL 448 H Calcium (8.5-10.1) mg/dL 9.4 HPI General Mode of arrival: ambulatory . Date/Time Provider Initiated Documentation: 08/27/18 12:42 . Limitations to Documentation: no limitations . Information obtained by: patient, RN notes reviewed and old records reviewed . HPI Narrative: Narciso Russo is a 52-year-old man with history of hypertension, hyperlipidemia, insulin dependent diabetes presenting to the emergency department with foot ulcers. Patient reports that 3 weeks ago he developed blisters on his right first and fifth toe. Patient reports that he popped the blisters, and has since developed ulcerations in the areas where the sutures are located. Patient reports that he has diabetic neuropathy of his feet chronically, and he has no pain in the areas of ulceration. Has had no drainage, no surrounding redness. No fevers. Patient reports that he came into the emergency department today because he was sent here by his home health nurse for evaluation of the ulcers. Feels in his usual state of health: No pain , no shortness of breath, no rash, no cough, no new numbness/tingling, no weakness. Has been eating and drinking as usual. No recent travel. Patient is unsure why he developed the blisters on his toes to begin with. Related Data Home Medications Medication Instructions Recorded Confirmed calcium carbonate 500 mg CH Q4H PRN PRN chew 04/22/15 08/27/18 lisinopril-hydrochlorothiazide 1 tab-cap PO DAILY #90 tab-cap 07/09/17 08/27/18 amlodipine 5 mg PO DAILY #90 tab-cap 09/16/17 08/27/18 glucose 4 gm PO BID PRN #60 tab.chew 10/31/17 08/27/18 pantoprazole 40 mg PO DAILY #90 tabcr 10/31/17 08/27/18 mirtazapine 30 mg PO HS #30 tab-cap 01/05/18 08/27/18 sertraline [Zoloft] 200 mg PO DAILY #180 tab-cap 01/27/18 08/27/18 insulin aspart U-100 [Novolog 5 units SUB-Q 0800,1200,1700 #10 02/24/18 08/27/18 Flexpen U-100 Insulin] syr pen needle, diabetic #100 ndl 02/24/18 08/27/18 Lactobacillus acidophilus 1 ea PO TID #30 tab-cap 04/30/18 08/27/18 amitriptyline 10 mg PO HS #90 tab-cap 05/18/18 08/27/18 gabapentin [Neurontin] 1,600 mg PO HS #180 tab-cap 05/18/18 08/27/18 pravastatin [Pravachol] 20 mg PO QPM #90 tab-cap 05/18/18 08/27/18 lancets [OneTouch UltraSoft #100 ea 05/21/18 08/27/18 Lancets] blood-glucose meter #1 ea 06/05/18 08/27/18 nicotine (polacrilex) 4 mg gum 4 mg PO q 1-2 h prn #100 piece of 06/16/18 gum MDD 10 pieces insulin glargine [Lantus Solostar 30 u SUB-Q HS #2 vial 06/29/18 08/27/18 U-100 Insulin] clonazepam 1 mg tablet 1 mg PO BID PRN #60 tab-cap 07/14/18 08/27/18 cephalexin [Keflex] 500 mg PO QID #55 cap 08/27/18 Previous Rx's Medication Instructions Recorded calcium carbonate 500 mg CH Q4H PRN PRN chew 04/22/15 lisinopril-hydrochlorothiazide 1 tab-cap PO DAILY #90 tab-cap 07/09/17 amlodipine 5 mg PO DAILY #90 tab-cap 09/16/17 pantoprazole 40 mg PO DAILY #90 tabcr 10/31/17 mirtazapine 30 mg PO HS #30 tab-cap 01/05/18 sertraline [Zoloft] 200 mg PO DAILY #180 tab-cap 01/27/18 insulin aspart U-100 [Novolog 5 units SUB-Q 0800,1200,1700 #10 02/24/18 Flexpen U-100 Insulin] syr pen needle, diabetic #100 ndl 02/24/18 Lactobacillus acidophilus 1 ea PO TID #30 tab-cap 04/30/18 amitriptyline 10 mg PO HS #90 tab-cap 05/18/18 gabapentin [Neurontin] 1,600 mg PO HS #180 tab-cap 05/18/18 pravastatin [Pravachol] 20 mg PO QPM #90 tab-cap 05/18/18 lancets [OneTouch UltraSoft #100 ea 05/21/18 Lancets] blood-glucose meter #1 ea 06/05/18 nicotine (polacrilex) 4 mg gum 4 mg PO q 1-2 h prn #100 piece of 06/16/18 gum MDD 10 pieces insulin glargine [Lantus Solostar 30 u SUB-Q HS #2 vial 06/29/18 U-100 Insulin] clonazepam 1 mg tablet 1 mg PO BID PRN #60 tab-cap 07/14/18 cephalexin [Keflex] 500 mg PO QID #55 cap 08/27/18 Allergies Allergy/AdvReac Type Severity Reaction Status Date / Time cinnamon Allergy Intermediate rash in Unverified 08/27/18 12:53 mouth General DION: 4 Review of Systems Review of Systems Constitutional: denies fevers Eyes: denies eye pain ENT: denies facial pain, dental pain, sore throat Cardiovascular: denies chest pain, edema Respiratory: denies SOB, cough GI: denies abdominal pain, vomiting, diarrhea : denies flank pain MSK: denies back pain, neck pain, arthralgias, myalgias Skin: denies rash, reports ulcerations to toes Neuro: denies headaches, lightheadedness, weakness PFSH Social History Smoking/Tobacco Use Status: Never how long ago did patient quit smoking: HASN'T CHEWED X 1.5 MOS 6/5/18 Exam Narrative Exam Narrative: Constitutional: well and [id number], pleasant, conversing normally HENT: head atraumatic, normocephalic normal inspection, mucous membranes moist Eyes: conjunctiva normal, sclera normal, pupils 3mm b/l Neck: no stridor, normal ROM, trachea midline Chest: normal inspection Resp: normal work of breathing, LCTAB Cardio: normal rate, normal rhythm, no murmur appreciated GI: abdomen soft, non-tender, non-distended Back: normal inspection, no rash Skin: warm, dry, normal color, no rash Neuro: alert, not altered, grossly non-focal, normal tone Ext: no edema, 1.5x1cm ulceration to distal right great toe with central granulation tissue, approximately 5 mm deep, also 2x3mm skin discoloration right medial 5th toe, neither lesion with surrounding erythema, purulence, induration Psych: normal mood, normal affect, normal behavior
--- NOTE | 2018-08-27 13:55 | DI.RAD_ITS ---
SYMPTOM/DIAGNOSIS: DIABETIC ULCERATIONS 1ST AND 5TH TOES RIGHT FOOT: Comparison is made with 11/13/14. There has been previous amputation of the second toe which appears unchanged. Soft tissue ulcer is seen near the tuft of the distal phalanx. No adjacent bony erosion is seen. There is an apparent erosion at the medial aspect of the distal proximal phalanx not seen on the previous exam. IMPRESSION: Question of bony erosion proximal phalanx of the great toe. No abnormality is seen involving the fifth toe.
[2018-08-27 14:23] VITALS: RESP 16
[2018-08-27 14:54] LABS: Abs Immature Grans 0.01 k/cumm (0.0-0.09); Absolute Basophil Count 0.03 k/cumm (0.0-0.2); Absolute Eosinophil Count 0.23 k/cumm (0.0-0.7); Absolute Lymphocyte Count 1.92 k/cumm (1.2-3.4); Absolute Monocyte Count 0.48 k/cumm (0.11-0.7); Basophils % 0.4; Eosinophils % 2.7; HCT 40.7 % (40.0-50.0); HGB 13.6 g/dL (13.5-17.5); Immature Grans % 0.1; Lymphocytes % 22.4; Mean Corp. HGB Concentration 33.4 g/dL (32.0-36.0); Mean Corpuscular Hemoglobin 29.2 pg (27.0-33.0); Mean Corpuscular Volume 87.5 fL (80-95); Mean Platelet Volume 10.6 fL (8.0-11.0); Monocytes % 5.6; Neutrophils % 68.8; Platelet Count 369 x1000/uL (130-400); RBC 4.65 m/cumm (4.50-6.00); RBC Distribution Width 12.9 % (11.8-14.1); White Blood Cell Count 8.57 k/cumm (4.4-10.8)
[2018-08-27] MEDS: Cephalexin 500 MG CAP PO (14:55)
[2018-08-27 15:08] LABS: Anion Gap 7.6 mmol/L (3-11); BUN 22 mg/dL (7-18); CO2 29.4 mmol/L (21.0-32.0); CREATININE 1.41 mg/dL (0.70-1.30); Calcium 9.4 mg/dL (8.5-10.1); Chloride 95 mmol/L (98-107); Estimated GFR 52.78 (mL/min/1.73m2); Glucose 448 mg/dL (70-100); Potassium 4.3 mmol/L (3.5-5.1); Sodium 132 mmol/L (136-145)
== END 2018-08-27 15:29 | disposition home or self-care (01) ==
PROVIDERS: Emergency Provider Student in an Organized Health Care Education/Training Program; PCP Family Medicine
DX: E11.620 Type 2 diabetes mellitus with diabetic dermatitis (principal); R73.9 Hyperglycemia, unspecified; E87.1 Hypo-osmolality and hyponatremia; R79.89 Other specified abnormal findings of blood chemistry; I10 Essential (primary) hypertension; Z79.4 Long term (current) use of insulin
CPT/HCPCS: 36415; 36416; 80048; 82962; 96360; 99284; 73630; 85025

== ENCOUNTER 2018-09-01 10:30 | Outpatient (CLI) | payer MEDICARE, SELFPAY ==
[2018-09-01 13:05] LABS: Potassium 4.6 mmol/L (3.5-5.1)
[2018-09-01 13:08] LABS: Hemoglobin A1C 10.3 % (4.5-6.2)
== END 2018-09-01 10:50 ==
PROVIDERS: PCP Family Medicine; Visit Provider Family Medicine
DX: E11.621 Type 2 diabetes mellitus with foot ulcer (principal); L97.519 Non-pressure chronic ulcer of other part of right foot with unspecified severity
CPT/HCPCS: 36415; 83036; 84132

== ENCOUNTER 2018-12-11 01:37 | Outpatient (CLI) | payer MEDICARE, SELFPAY ==
[2018-12-11 13:31] LABS: Hemoglobin A1C 9.7 % (4.5-6.2)
== END 2018-12-11 01:57 ==
PROVIDERS: PCP Family Medicine; Visit Provider Family Medicine
DX: E11.49 Type 2 diabetes mellitus with other diabetic neurological complication (principal); E11.65 Type 2 diabetes mellitus with hyperglycemia
CPT/HCPCS: 36415; 83036

== ENCOUNTER 2019-10-09 09:20 | Outpatient (CLI) | payer MEDICARE, SELFPAY ==
[2019-10-09 11:32] LABS: Hemoglobin A1C 11.2 % (3.8-5.6)
== END 2019-10-09 09:40 ==
PROVIDERS: PCP Family Medicine; Visit Provider Family Medicine
DX: E11.49 Type 2 diabetes mellitus with other diabetic neurological complication; E11.65 Type 2 diabetes mellitus with hyperglycemia
CPT/HCPCS: 36415; 86900; 86901; 83036

== ENCOUNTER 2020-06-16 08:40 | Outpatient (CLI) | payer MEDICARE, SELFPAY ==
[2020-06-16 13:41] LABS: Cholesterol 229 mg/dL (<200); HDL Cholesterol 29 mg/dL (40-60); Potassium 4.5 mmol/L (3.5-5.1); TSH (W/Ref FT4) 14.89 uIU/mL (0.36-3.74); Triglyceride 503 mg/dL (<150); Vitamin B12 527 pg/mL (193-986)
[2020-06-16 13:56] LABS: LDL CHOLESTEROL 118 mg/dL (<100)
[2020-06-16 14:13] LABS: FREE T4 0.77 ng/dL (0.76-1.46)
[2020-06-19 11:08] LABS: Syphilis Serology (RPR) Negative (Negative)
== END 2020-06-16 09:00 ==
PROVIDERS: PCP Family Medicine; Referring Provider Family Medicine; Visit Provider Family Medicine
DX: E78.5 Hyperlipidemia, unspecified (principal); I10 Essential (primary) hypertension; D64.9 Anemia, unspecified; R41.3 Other amnesia
CPT/HCPCS: 36415; 80061; 83721; 82607; 84132; 84439; 84443; 86592

== ENCOUNTER 2020-12-19 13:55 | Outpatient (REF) | payer MEDICARE, SELFPAY ==
[2020-12-19 14:35] LABS: CREATININE 1.2 mg/dL (0.70-1.30); Potassium 4.8 mmol/L (3.5-5.1); TSH (W/Ref FT4) 14.82 uIU/mL (0.36-3.74)
[2020-12-19 15:00] LABS: FREE T4 0.75 ng/dL (0.76-1.46)
[2020-12-19 21:58] LABS: PSA, Screening 0.2 ng/mL (0.0-3.5)
== END 2020-12-19 13:56 | disposition home or self-care (01) ==
LOC: LBN 13:55
PROVIDERS: PCP Family Medicine; Visit Provider Family Medicine
DX: I10 Essential (primary) hypertension (principal); E03.9 Hypothyroidism, unspecified; Z12.5 Encounter for screening for malignant neoplasm of prostate
CPT/HCPCS: 84153; 82565; 84132; 84439; 84443

== ENCOUNTER 2022-06-05 01:43 | Outpatient (CLI) | payer MEDICARE, SELFPAY ==
[2022-06-05 13:12] LABS: Anion Gap 8.9 mmol/L (3-11); BUN 21 mg/dL (7-18); CO2 28.1 mmol/L (21.0-32.0); CREATININE 1.5 mg/dL (0.70-1.30); Calcium 8.7 mg/dL (8.5-10.1); Calculated LDL 115 mg/dL (<100); Chloride 100 mmol/L (98-107); Cholesterol 184 mg/dL (<200); Glucose 186 mg/dL (74-106); HDL Cholesterol 43 mg/dL (40-60); Sodium 137 mmol/L (136-145); TSH (W/Ref FT4) 23.85 uIU/mL (0.36-3.74); Triglyceride 134 mg/dL (<150)
[2022-06-05 14:16] LABS: FREE T4 0.82 ng/dL (0.76-1.46)
[2022-06-05 22:51] LABS: Albumin ug/mg Crea 487 (<30); Albumin, Ur 47.9 mg/dL (See Note); Creatinine, Ur 98.3 mg/dL (See Note)
== END 2022-06-05 01:44 | disposition home or self-care (01) ==
LOC: LOS 01:43
PROVIDERS: PCP Family Medicine; Visit Provider Family Medicine
DX: E78.5 Hyperlipidemia, unspecified (principal); E03.9 Hypothyroidism, unspecified; E11.9 Type 2 diabetes mellitus without complications; E87.1 Hypo-osmolality and hyponatremia
CPT/HCPCS: 36415; 80048; 80061; 82043; 82570; 84439; 84443

== ENCOUNTER 2022-08-26 20:00 | Inpatient (IN) | payer MEDICARE, SELFPAY ==
[2022-08-26] VITALS (74 sets, daily range): BP systolic 134–155; BP diastolic 72–87; PULSE 86–94; RESP 0–28; TEMP 36.7; O2SAT 85–97
--- NOTE | 2022-08-26 20:19 | ED.GENADUL_ITS ---
Discharge Plan Disposition Patient Disposition: Admit to [facility] Condition: Serious Discharge Details Clinical Impression: Non-ST elevation MA (NSTEMI), DKA (diabetic ketoacidosis), Flu Primary Care Provider: Dmitriy Oliver ED Provider: Tayo Thacker Home Meds and New Rx's Prescriptions: No Action aouwp-ivehnvupb-aelybuz-water 12 mg-1 mg- 10 mcg/mL solution 0.2 - 1 ml IC DAILY PRN (Reason: erect dysf) Qty: 10 3RF Rx Instructions: increase by 0.1 ml each dose until adequate erection sildenafil (pulm.hypertension) 20 mg tablet 20 - 100 mg PO DAILY PRN (Reason: sexual activity) Qty: 30 5RF (DME) OneTouch Ultra Blue Test Strip Strip See Rx Instructions .ROUTE .MEDSUPPLY Qty: 300 3RF Rx Instructions: test TID Trulicity 4.5 mg/0.5 mL pen injector 4.5 mg subcut QWEEK Qty: 2 11RF insulin aspart U-100 [Novolog Flexpen U-100 Insulin] 100 unit/mL (3 mL) insulin pen 6 - 9 unit Sub-Q 0800,1200,1700 Qty: 10 5RF Rx Instructions: hold if not eating E11.9 pravastatin 20 mg tablet 20 mg PO QPM Qty: 90 4RF mirtazapine 45 mg tablet 45 mg PO DAILY Qty: 90 3RF insulin glargine [Lantus Solostar U-100 Insulin] 100 unit/mL (3 mL) insulin pen 27 unit Sub-Q HS Qty: 6 4RF clonazepam [Klonopin] 1 mg tablet 1 mg PO DAILY PRN (Reason: anxiety) Qty: 30 2RF Rx Instructions: dose reduction pantoprazole 40 mg tablet,delayed release (DR/EC) 40 mg PO DAILY Qty: 90 3RF sertraline [Zoloft] 100 mg tablet 200 mg PO DAILY Qty: 180 4RF amitriptyline 10 mg tablet 10 mg PO HS Qty: 90 3RF Jardiance 10 mg tablet 10 mg PO DAILY Qty: 30 2RF glucose 4 GM tablet,chewable 4 gm PO BID PRNQty: 60 (DME) lancets [OneTouch UltraSoft Lancets] 1 EACH misc 1 ea Miscellaneous BID Qty: 100 12RF Rx Instructions: E11.9 amlodipine 5 mg tablet See Rx Instructions .ROUTE .COMPLEX Qty: 90 3RF Dose Instruction: TAKE ONE TABLET BY MOUTH EVERY DAY Rx Instructions: TAKE ONE TABLET BY MOUTH EVERY DAY gabapentin [Neurontin] 800 mg tablet 1,600 mg PO HS Qty: 180 3RF Rx Instructions: two at hs levothyroxine 75 mcg capsule 75 mcg PO DAILY Qty: 90 3RF (DME) pen needle, diabetic 31 gauge x 1/3 needle 1 ea Sub-Q TID Qty: 400 3RF Rx Instructions: inject QID losartan-hydrochlorothiazide 100-12.5 mg tablet 1 tab PO DAILY Qty: 90 3RF (DME) blood-glucose meter Misc 1 ea Miscellaneous ONCE Qty: 1 0RF Rx Instructions: METER TYPE ONE TOUCH ULTRA MINI DIAGNOSIs: E11.9 Medical Decision Making 56-year-old gentleman with a past medical history of insulin-dependent diabetes, presents to the ER for evaluation of what he describes as nausea, vomiting, intermittent abdominal pain for the past few days. Plan to obtain IV access, obtain routine screening laboratory values, give IV fluid and Zofran. Patient does have a history of DKA. Upon reevaluation patient reports that his nausea is improving some but he is now complaining of indigestion, given his complicated past medical history I question if this is a chest pain equivalent, will add on EKG and troponin. EKG reveals some flipped deep T waves, consider ischemia. Patient tells me he has 6 out of 10 chest pressure. A single nitro given and chest pressure resolved completely. Laboratory values reveal leukocytosis of 18.05. Absolute neutrophils of 14.78. Electrolytes unremarkable, anion gap 13.5, slightly elevated will add on VBG, concern for DKA. Creatinine 1.9 with a GFR of 40.89. Patient received 500 bolus via EMS and is receiving 1 L normal saline and 1 L lactated Ringer's here. Glucose of 582. Troponin 299. EKG pushed to [facility] and I requested a consultation-transfer. Case discussed with cardiology, Dr. Seo at [facility] [id number]. Recommends transfer to higher level of care with Case Management Rn but unfortunately they do not have capacity and are not put anyone on the wait list for tomorrow. Recommends full dose aspirin which patient has already received. Recommends heparin bolus and drip. Additional nitro if chest pressure returns. Does not recommend initiating Plavix now. Echo in the morning. Be sure to obtain repeat EKG at the time of delta troponin. VBG does reveal the patient is slightly acidotic, mild DKA. Initiate insulin drip. Flu positive, will provide Tamiflu Attempted to contact multiple facilities in [place], [place], [place], [place], and subsequently [facility] in [facility]. All facilities except for [facility] told me that they were at capacity and could not accept any transfer. I was able to discuss the case with cardiology at [facility] in [place], Dr. Peralta. She reports that they do in fact have cardiology beds but given he is in DKA they cannot accept the patient to a medical bed. Would need to first reverse his DKA and if this happens then they would likely be able to except tomorrow. At this time we do not have an accepting physician or bed placement. Elevated troponin is 395. Repeat EKG performed at 2058 reveals sinus rhythm, ventricular of 91. The abnormal inverted deep T waves persist but are unchanged. Plan now to discuss with our hospitalist for admission to our ICU for DKA, NSTEMI, flu and once DKA has resolved hopeful transfer to higher level of care with interventional cardiology. Awaiting his evaluation This documentation was generated using [employer] dictation system, please disregard any oddities of phrase or misspellings. Medical Records Medical records reviewed: Yes I reviewed the patient's medical records. Imaging Data Radiologic Study: Attestation: I personally reviewed and interpreted this imaging study as follows: Imaging: X-Ray Radiologist's impression: PROCEDURE INFORMATION: Exam: XR Chest Exam date and time: 08/26/2022 9:38 PM Age: 56 years old Clinical indication: Other: Nausea, vomiting, leukocytosis TECHNIQUE: Imaging protocol: Radiologic exam of the chest. Views: 2 views. COMPARISON: CR CHEST 2 VIEWS PA,LAT 09/02/2015 8:46 PM FINDINGS: Lungs: Moderate interstitial thickening/opacities greater on the right No consolidation. Pleural spaces: No pleural effusion. No pneumothorax. Heart/Mediastinum: No cardiomegaly. Bones/joints: Unremarkable. IMPRESSION: Moderate interstitial pneumonitis versus edema Lab Data Lab results reviewed: Yes I reviewed the patient's lab results. Labs: Laboratory Tests Range/Units 08/26/22 08/26/22 08/26/22 20:10 20:10 20:10 WBC (4.4-10.8) 10^3/uL 18.05 H RBC (4.36-5.78) 10^6/uL 4.90 Hgb (13.5-17.5) g/dL 14.1 Hct (40.0-50.0) % 43.8 MCV (80-95) fL 89 MCH (27.0-33.0) pg 28.8 MCHC (32.0-36.0) % 32.2 RDW (11.8-14.1) % 13.1 Plt Count (130-400) 10^3/uL 300 MPV (8.0-11.0) fL 11.0 Immature Gran % 0.5 Neutrophils % 81.9 Lymphocytes % 15.3 Monocytes % 2.1 Eosinophils % 0.0 Basophils % 0.2 Nucleated RBC % (0.0-0.3) % 0.0 Absolute Neutrophils (1.2-6.7) 10^3/uL 14.78 H Absolute Lymphocytes (1.2-3.4) 10^3/uL 2.76 Absolute Monocytes (0.1-0.8) 10^3/uL 0.38 Absolute Eosinophils (0.0-0.7) 10^3/uL 0.00 Absolute Basophils (0.0-0.2) 10^3/uL 0.04 PT (9.3-11.0) sec INR (0.9-1.1) APTT (21.0-27.5) sec VBG pH (7.31-7.41) VBG pCO2 (41-51) mmHg VBG pO2 mmHg VBG HCO3 (23-28) mmol/L VBG Total CO2 (24-29) mmol/l VBG O2 Saturation % VBG Base Excess (-2-3) mmol/L Sodium (136-145) mmol/L 136 Potassium (3.5-5.1) mmol/L 5.0 Chloride (98-107) mmol/L 99 Carbon Dioxide (21.0-32.0) mmol/L 23.5 Anion Gap (3-11) mmol/L 13.5 H BUN (7-18) mg/dL 26 H Creatinine (0.70-1.30) mg/dL 1.9 H Est GFR (CKD-EPI 2020) (mL/min/1.73m2) 40.89 Glucose (74-106) mg/dL 582 H* Calcium (8.5-10.1) mg/dL 9.2 Phosphorus (2.6-4.7) mg/dL Magnesium (1.8-2.4) mg/dL Total Bilirubin (0.2-1.0) mg/dL 0.5 AST (15-37) U/L 20 ALT (16-63) U/L 23 Alkaline Phosphatase (46-116) U/L 91 Troponin I (<or=60) ng/L 299 H* Total Protein (6.4-8.2) g/dL 7.5 Albumin (3.4-5.0) g/dL 3.6 Lipase (73-393) U/L 27 Urine Color (Yellow) Urine Clarity (Clear) Urine pH (5-8) Ur Specific [place] (1.005-1.025) Urine Protein (Negative) mg/dL Urine Ketones (Negative) mg/dL Urine Blood (Negative) Urine Nitrite (Negative) Urine Bilirubin (Negative) Urine Urobilinogen (Up TO 0.2) EU/dL Ur Leukocyte Esterase (Negative) Urine RBC (0-2) HPF Urine WBC (0-5) HPF Ur Epithelial Cells (Negative) HPF Urine Crystals (Negative) HPF Urine Bacteria (Negative) HPF Urine Mucus (Negative) Urine Other (Negative) Ur Culture Indicated? Urine Glucose (Negative) mg/dL COVID-19 Source SARS-CoV-2 (PCR) (Negative) Influenza Type A (PCR) (Negative) Influenza Type B (PCR) (Negative) RSV (PCR) (Negative) Range/Units 08/26/22 08/26/22 08/26/22 20:10 20:10 21:04 WBC (4.4-10.8) 10^3/uL RBC (4.36-5.78) 10^6/uL Hgb (13.5-17.5) g/dL Hct (40.0-50.0) % MCV (80-95) fL MCH (27.0-33.0) pg MCHC (32.0-36.0) % RDW (11.8-14.1) % Plt Count (130-400) 10^3/uL MPV (8.0-11.0) fL Immature Gran % Neutrophils % Lymphocytes % Monocytes % Eosinophils % Basophils % Nucleated RBC % (0.0-0.3) % Absolute Neutrophils (1.2-6.7) 10^3/uL Absolute Lymphocytes (1.2-3.4) 10^3/uL Absolute Monocytes (0.1-0.8) 10^3/uL Absolute Eosinophils (0.0-0.7) 10^3/uL Absolute Basophils (0.0-0.2) 10^3/uL PT (9.3-11.0) sec 10.8 INR (0.9-1.1) 1.1 APTT (21.0-27.5) sec 22.5 VBG pH (7.31-7.41) VBG pCO2 (41-51) mmHg VBG pO2 mmHg VBG HCO3 (23-28) mmol/L VBG Total CO2 (24-29) mmol/l VBG O2 Saturation % VBG Base Excess (-2-3) mmol/L Sodium (136-145) mmol/L Potassium (3.5-5.1) mmol/L Chloride (98-107) mmol/L Carbon Dioxide (21.0-32.0) mmol/L Anion Gap (3-11) mmol/L BUN (7-18) mg/dL Creatinine (0.70-1.30) mg/dL Est GFR (CKD-EPI 2020) (mL/min/1.73m2) Glucose (74-106) mg/dL Calcium (8.5-10.1) mg/dL Phosphorus (2.6-4.7) mg/dL 3.9 Magnesium (1.8-2.4) mg/dL 1.5 L Total Bilirubin (0.2-1.0) mg/dL AST (15-37) U/L ALT (16-63) U/L Alkaline Phosphatase (46-116) U/L Troponin I (<or=60) ng/L Total Protein (6.4-8.2) g/dL Albumin (3.4-5.0) g/dL Lipase (73-393) U/L Urine Color (Yellow) Urine Clarity (Clear) Urine pH (5-8) Ur Specific [place] (1.005-1.025) Urine Protein (Negative) mg/dL Urine Ketones (Negative) mg/dL Urine Blood (Negative) Urine Nitrite (Negative) Urine Bilirubin (Negative) Urine Urobilinogen (Up TO 0.2) EU/dL Ur Leukocyte Esterase (Negative) Urine RBC (0-2) HPF Urine WBC (0-5) HPF Ur Epithelial Cells (Negative) HPF Urine Crystals (Negative) HPF Urine Bacteria (Negative) HPF Urine Mucus (Negative) Urine Other (Negative) Ur Culture Indicated? Urine Glucose (Negative) mg/dL COVID-19 Source Nasopharynx SARS-CoV-2 (PCR) (Negative) Negative Influenza Type A (PCR) (Negative) Positive A Influenza Type B (PCR) (Negative) Negative RSV (PCR) (Negative) Negative Range/Units 08/26/22 08/26/22 08/26/22 21:29 21:50 23:27 WBC (4.4-10.8) 10^3/uL RBC (4.36-5.78) 10^6/uL Hgb (13.5-17.5) g/dL Hct (40.0-50.0) % MCV (80-95) fL MCH (27.0-33.0) pg MCHC (32.0-36.0) % RDW (11.8-14.1) % Plt Count (130-400) 10^3/uL MPV (8.0-11.0) fL Immature Gran % Neutrophils % Lymphocytes % Monocytes % Eosinophils % Basophils % Nucleated RBC % (0.0-0.3) % Absolute Neutrophils (1.2-6.7) 10^3/uL Absolute Lymphocytes (1.2-3.4) 10^3/uL Absolute Monocytes (0.1-0.8) 10^3/uL Absolute Eosinophils (0.0-0.7) 10^3/uL Absolute Basophils (0.0-0.2) 10^3/uL PT (9.3-11.0) sec INR (0.9-1.1) APTT (21.0-27.5) sec VBG pH (7.31-7.41) 7.25 L VBG pCO2 (41-51) mmHg 47 VBG pO2 mmHg 30 L* VBG HCO3 (23-28) mmol/L 20 L VBG Total CO2 (24-29) mmol/l 22 L VBG O2 Saturation % 47 VBG Base Excess (-2-3) mmol/L -7 L Sodium (136-145) mmol/L Potassium (3.5-5.1) mmol/L Chloride (98-107) mmol/L Carbon Dioxide (21.0-32.0) mmol/L Anion Gap (3-11) mmol/L BUN (7-18) mg/dL Creatinine (0.70-1.30) mg/dL Est GFR (CKD-EPI 2020) (mL/min/1.73m2) Glucose (74-106) mg/dL Calcium (8.5-10.1) mg/dL Phosphorus (2.6-4.7) mg/dL Magnesium (1.8-2.4) mg/dL Total Bilirubin (0.2-1.0) mg/dL AST (15-37) U/L ALT (16-63) U/L Alkaline Phosphatase (46-116) U/L Troponin I (<or=60) ng/L 395 H* Total Protein (6.4-8.2) g/dL Albumin (3.4-5.0) g/dL Lipase (73-393) U/L Urine Color (Yellow) Yellow Urine Clarity (Clear) Clear Urine pH (5-8) 6.0 Ur Specific [place] (1.005-1.025) 1.015 Urine Protein (Negative) mg/dL 30 H Urine Ketones (Negative) mg/dL 15 H Urine Blood (Negative) Trace-intact H Urine Nitrite (Negative) Negative Urine Bilirubin (Negative) Negative Urine Urobilinogen (Up TO 0.2) EU/dL 0.2 Ur Leukocyte Esterase (Negative) Negative Urine RBC (0-2) HPF 0-2 Urine WBC (0-5) HPF 0-2 Ur Epithelial Cells (Negative) HPF Rare Urine Crystals (Negative) HPF Negative Urine Bacteria (Negative) HPF Rare Urine Mucus (Negative) Negative Urine Other (Negative) Few [place] Ur Culture Indicated? No Urine Glucose (Negative) mg/dL 500 H COVID-19 Source SARS-CoV-2 (PCR) (Negative) Influenza Type A (PCR) (Negative) Influenza Type B (PCR) (Negative) RSV (PCR) (Negative) ECG Data Attestation: I personally reviewed and interpreted this ECG (s) as follows: Interpretation: Sinus rhythm, sinus rhythm of 91. Abnormal T waves, concerning for ischemia. No STEMI. Sign Out No HPI General Mode of arrival: EMS . Date/Time Provider Initiated Documentation: 08/26/22 20:16 . Limitations to Documentation: no limitations . Information obtained by: patient . History of Present Illness 56 year old M presents to the emergency department with the chief complaint of N/V, described as moderate, with intensity rated at 5. Quality is described as aching, and is localized to the abdomen. Patient reports no radiation. Patient started experiencing this week(s) (2) and it has been intermittent. No relieving factors improve symptom(s), No exacerbating factors reported . Patient notes nausea/vomiting. Patient did receive the following treatments prior to arrival, other (zofran) Related Data Home Medications Medication Instructions Recorded Confirmed glucose 4 gram chewable tablet 4 gm PO BID PRN ##60 10/31/17 08/26/22 lancets (OneTouch UltraSoft #100 ea 05/21/18 08/26/22 Lancets) wwlbbasscu-gffzzvmkj-awdleew 12 0.2 - 1 ml intra-cavernosal DAILY 02/19/19 08/26/22 mg-1 mg-10 mcg/mL intracavernosal PRN erect dysf #10 mL soln sildenafil (pulm.hypertension) 20 20 - 100 mg PO DAILY PRN sexual 05/21/19 08/26/22 mg tablet activity #30 tabs blood sugar diagnostic (OneTouch #300 ea 06/16/20 08/26/22 Ultra Blue Test Strip) amlodipine 5 mg tablet See Rx Instructions .Route 11/02/21 08/26/22 .COMPLEX #90 tabs gabapentin 800 mg tablet 1,600 mg PO HS #180 tab-caps 11/26/21 08/26/22 (Neurontin) levothyroxine 75 mcg capsule 75 mcg PO DAILY #90 caps 01/14/22 08/26/22 pen needle, diabetic 31 gauge x #400 ea 02/05/22 08/26/2209/24 dulaglutide 4.5 mg/0.5 mL 4.5 mg (0.5 mL) subcut QWEEK #2 mL 03/07/22 08/26/22 subcutaneous pen injector ([facility]) insulin aspart U-100 100 unit/mL 6 - 9 unit (0.06 - 0.09 mL) subcut 03/07/22 08/26/22 (3 mL) subcutaneous pen (Novolog 0800,1200,1700 #10 mL Flexpen U-100 Insulin aspart) mirtazapine 45 mg tablet 45 mg PO DAILY #90 tabs 03/07/22 08/26/22 pravastatin 20 mg tablet 20 mg PO QPM #90 tab-caps 03/07/22 08/26/22 amitriptyline 10 mg tablet 10 mg PO HS #90 tab-caps 06/11/22 08/26/22 clonazepam 1 mg tablet (Klonopin) 1 mg PO DAILY PRN anxiety #30 06/11/22 08/26/22 tab-caps empagliflozin 10 mg tablet 10 mg PO DAILY #30 tabs 06/11/22 08/26/22 (Jardiance) insulin glargine 100 unit/mL (3 27 unit (0.27 mL) subcut HS #6 06/11/22 08/26/22 mL) subcutaneous pen (Lantus vials Solostar U-100 Insulin) pantoprazole 40 mg tablet,delayed 40 mg PO DAILY ##90 06/11/22 08/26/22 release sertraline 100 mg tablet (Zoloft) 200 mg PO DAILY #180 tab-caps 06/11/22 08/26/22 losartan 100 1 tab PO DAILY #90 tabs 07/08/22 08/26/22 mg-hydrochlorothiazide 12.5 mg tablet blood-glucose meter #1 ea 07/15/22 08/26/22 Previous Rx's Medication Instructions Recorded lancets (OneTouch UltraSoft #100 ea 05/21/18 Lancets) axamzekkds-cqiidvkxe-gzcwvtu 12 0.2 - 1 ml intra-cavernosal DAILY 02/19/19 mg-1 mg-10 mcg/mL intracavernosal PRN erect dysf #10 mL soln sildenafil (pulm.hypertension) 20 20 - 100 mg PO DAILY PRN sexual 05/21/19 mg tablet activity #30 tabs blood sugar diagnostic (OneTouch #300 ea 06/16/20 Ultra Blue Test Strip) amlodipine 5 mg tablet See Rx Instructions .Route 11/02/21 .COMPLEX #90 tabs gabapentin 800 mg tablet 1,600 mg PO HS #180 tab-caps 11/26/21 (Neurontin) levothyroxine 75 mcg capsule 75 mcg PO DAILY #90 caps 01/14/22 pen needle, diabetic 31 gauge x #400 ea 02/05/2209/24 dulaglutide 4.5 mg/0.5 mL 4.5 mg (0.5 mL) subcut QWEEK #2 mL 03/07/22 subcutaneous pen injector (Trulicity) insulin aspart U-100 100 unit/mL 6 - 9 unit (0.06 - 0.09 mL) subcut 03/07/22 (3 mL) subcutaneous pen (Novolog 0800,1200,1700 #10 mL Flexpen U-100 Insulin aspart) mirtazapine 45 mg tablet 45 mg PO DAILY #90 tabs 03/07/22 pravastatin 20 mg tablet 20 mg PO QPM #90 tab-caps 03/07/22 amitriptyline 10 mg tablet 10 mg PO HS #90 tab-caps 06/11/22 clonazepam 1 mg tablet (Klonopin) 1 mg PO DAILY PRN anxiety #30 06/11/22 tab-caps empagliflozin 10 mg tablet 10 mg PO DAILY #30 tabs 06/11/22 (Jardiance) insulin glargine 100 unit/mL (3 27 unit (0.27 mL) subcut HS #6 06/11/22 mL) subcutaneous pen (Lantus vials Solostar U-100 Insulin) pantoprazole 40 mg tablet,delayed 40 mg PO DAILY ##90 06/11/22 release sertraline 100 mg tablet (Zoloft) 200 mg PO DAILY #180 tab-caps 06/11/22 losartan 100 1 tab PO DAILY #90 tabs 07/08/22 mg-hydrochlorothiazide 12.5 mg tablet blood-glucose meter #1 ea 07/15/22 Allergies Allergy/AdvReac Type Severity Reaction Status Date / Time cinnamon Allergy Intermediate rash in Verified 08/26/22 20:15 mouth General Stated Complaint: Nausea/Vomit/Diar DION: 4 Review of Systems Constitutional Constitutional: Denies fever(s) and Denies weakness Cardiovascular Cardiovascular: Denies chest pain and Denies dyspnea Respiratory Respiratory: Denies cough and Denies dyspnea Gastrointestinal Gastrointestinal: Reports abdominal pain, Denies melena, Denies hematochezia, Denies diarrhea, Reports nausea and Reports vomiting Genitourinary Genitourinary: Denies dysuria Musculoskeletal Musculoskeletal: Denies back pain Integumentary/Breasts Skin/Breast: Denies rash Neurologic Neurologic: Denies weakness PFSH All Active Problems (Updated 08/27/22 @ 00:04 by AVA Zambrano) Non-ST elevation MA (NSTEMI) (Acute) DKA (diabetic ketoacidosis) (Acute) Flu (Acute) Screening for colon cancer (Acute) Memory loss (Acute) Noncompliance (Acute) Elevation of level of transaminase and lactic acid dehydrogenase (LDH) (Acute 04/08/11) Anxiety (Acute 05/05/13) Type 2 diabetes, uncontrolled, with ulcer of toe (Acute 02/09/14) Type II diabetes mellitus with neurological manifestations, uncontrolled (Acute 02/09/14) Reflux esophagitis (Acute 09/04/15) 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 Peripheral neuropathy b. Insulin dependent Anxiety (Chronic) Hypertension (Chronic) Hyperlipidemia (Chronic) Acute osteomyelitis of right foot (Acute 01/21/14) a. diabetic toe ulcer b. MSSA c. wet gangrene d. 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, right foot Social History Smoking/Tobacco Use Status: Never Smokeless tobacco user: chewing tobacco Smoking risk assessment performed?: Yes Drug use: Never Do you feel safe in your relationship?: Yes Exam Const General: cooperative, comfortable, disheveled and other (Dry heaving) Orientation: alert, awake and oriented x3 HENMT Head: normal to inspection, normocephalic and atraumatic Face and sinus: normal facial exam Mouth: moist mucous membranes abnormal (Dry) Throat: posterior oropharynx normal Eyes General: appearance normal, both eyes and all related structures Conjunctivae: conjunctivae normal Neck Neck: normal visual inspection, full ROM, no meningeal signs, trachea midline and supple Resp Effort & Inspection: normal respiratory effort and able to speak in complete sentences Auscultation: clear to auscultation bilaterally Cardio Rate: regular rate Rhythm: regular rhythm GI Palpation: soft, not firm, no guarding and nontender Back/Spine/Pelvis Back: No back tenderness Skin General skin exam: no rashes or lesions noted Neuro General: patient alert, patient awake, moves all extremities and no focal motor deficits Cognition: normal cognition Speech: speech normal Sensory Exam: no sensory deficits noted Extrem General: normal to inspection, full ROM, capillary refill normal, no pedal edema and no calf tenderness Psych Appearance: grossly normal Mental Status: mental status grossly normal Course Vital Signs Vital signs: Vital Signs Temperature 36.7 C 08/26/22 20:11 Pulse 86 08/26/22 20:11 Respiratory Rate 16 08/26/22 20:11 Blood Pressure 155/87 H 08/26/22 20:11 Pulse Oximetry 94 08/26/22 20:11 Temperature 36.7 C 08/26/22 20:11 Temperature Source Tympanic 08/26/22 20:11 Pulse 86 08/26/22 20:11 Respiratory Rate 16 08/26/22 20:11 Respiratory Effort 08/26/22 20:11 Blood Pressure 155/87 H 08/26/22 20:11 Blood Pressure Position Supine 08/26/22 20:11 Pulse Oximetry 94 08/26/22 20:11 Oxygen Delivery Method Room Air 08/26/22 20:11 Oxygen Flow Rate 0 08/26/22 20:11 Critical Care Time Critical Care Time Critical Care Time: Yes Total Critical Care Time: 45 Attestation: Upon my evaluation, this patient had a high probability of clinically significant, life-threatening deterioration due to their current medical conditions, which required my direct attention, intervention, and personal management. I have personally provided greater than 30 minutes of critical care time exclusive of the time spend on separately billable procedures. Time includes obtaining a history, examining the patient, pulse oximetry, review of laboratory data, radiology results, discussion with consultants, arranging urgent treatment with development of a management plan, evaluation of patient's response to treatment, and monitoring for potential decompensation. Interventions were performed as documented above.
[2022-08-26] MEDS: Normal Saline 1,000 ML 1000 ML IV (20:25)
[2022-08-26] MEDS: Ondansetron 4 MG/2 ML VIAL IVP (20:26)
[2022-08-26 20:29] LABS: Abs Immature Grans 0.09 10^3/uL (0.0-0.06); Absolute Lymphocyte Count 2.76 10^3/uL (1.2-3.4); Absolute Monocyte Count 0.38 10^3/uL (0.1-0.8); Basophils % 0.2; HCT 43.8 % (40.0-50.0); HGB 14.1 g/dL (13.5-17.5); Immature Grans % 0.5; Lymphocytes % 15.3; MCH 28.8 pg (27.0-33.0); MCHC 32.2 % (32.0-36.0); MCV 89 fL (80-95); Monocytes % 2.1; Neutrophils % 81.9; Platelet Count 300 10^3/uL (130-400); RDW 13.1 % (11.8-14.1); RDW-SD 42.8 fL; WBC 18.05 10^3/uL (4.4-10.8)
[2022-08-26 20:30] LABS: Absolute Basophil Count 0.04 10^3/uL (0.0-0.2); Absolute Neutrophil Count 14.78 10^3/uL (1.2-6.7)
--- NOTE | 2022-08-26 20:30 | RT.EKG_ITS ---
APPROVED REPORT Exam: Resting ECG Reason for Exam: Indigestion Patient Location: E HR:91 bpm ECG Measurements Heart Rate 91 AXIS VT 180 P 5 QRSd 95 QRS 81 QT 432 T 204 QTc 533 Conclusion Sinus rhythm...normal P axis, V-rate 60- 99 Probable left atrial enlargement...P >50mS, <-0.10mV V1 Probable anterior infarct, age indeterminate...Q >35mS, T neg, V2-V5 Abnormal T, consider ischemia, lateral leads...T <-0.20mV, I aVL V5 V6 Prolonged QT interval...QTc >500mS
[2022-08-26] MEDS: Calcium Carbonate *TUMS* 500 MG CHEW (20:44)
--- NOTE | 2022-08-26 20:45 | DI.RAD_ITS ---
Exam(s) XR CHEST 2V PA LATERAL EXAM: XR CHEST 2V PA LATERAL CLINICAL HISTORY: N/V, leukocytosis TECHNIQUE: 2D digital imaging was performed of the chest. Two images were obtained. PA and lateral views were obtained. COMPARISON: CR CHEST 2 VIEWS PA,LAT from 09/02/2015 FINDINGS: MEDIASTINUM: Normal. HEART: Normal. PULMONARY VASCULATURE: Normal. LUNGS: There is diffuse interstitial thickening bilaterally PLEURAL SPACE: No pleural effusion or pneumothorax. BONE:Within normal limits for the patient's age. OTHER FINDINGS:Normal. IMPRESSION: Bilateral diffuse interstitial thickening. Pneumonitis versus edema. Please correlate clinically. DATA REPOSITORY: RADIATION DOSE DELIVERED:
[2022-08-26 20:46] LABS: ALT 23 U/L (16-63); AST 20 U/L (15-37); Albumin 3.6 g/dL (3.4-5.0); Alkaline Phosphatase 91 U/L (46-116); Anion Gap 13.5 mmol/L (3-11); BUN 26 mg/dL (7-18); Bilirubin, Total 0.5 mg/dL (0.2-1.0); CO2 23.5 mmol/L (21.0-32.0); CREATININE 1.9 mg/dL (0.70-1.30); Calcium 9.2 mg/dL (8.5-10.1); Chloride 99 mmol/L (98-107); Estimated GFR 40.89 (mL/min/1.73m2); Lipase 27 U/L (73-393); Sodium 136 mmol/L (136-145); Total Protein 7.5 g/dL (6.4-8.2)
[2022-08-26 20:50] LABS: Glucose 582 mg/dL (74-106)
[2022-08-26 21:09] LABS: Troponin I 299 ng/L (<or=60)
[2022-08-26] MEDS: Lactated Ringers 1,000 ML 1000 ML IV (21:22)
[2022-08-26] MEDS: Aspirin 325 MG TAB (21:22)
[2022-08-26] MEDS: Prochlorperazine 10 MG/2 ML VIAL (21:23)
[2022-08-26 21:45] LABS: Bilirubin Negative (Negative); Blood Trace-intact (Negative); Clarity Clear (Clear); Glucose 500 mg/dL (Negative); Ketones 15 mg/dL (Negative); Leukocyte Esterase Negative (Negative); Nitrite Negative (Negative); Specific Gravity 1.015 (1.005-1.025); Urobilinogen 0.2 EU/dL (Up TO 0.2)
[2022-08-26 21:51] LABS: COVID-19 PCR Negative (Negative); Influenza A PCR Positive (Negative); Influenza B PCR Negative (Negative); RSV PCR Negative (Negative); Source Nasopharynx
[2022-08-26 21:52] LABS: Epithelial Cells Rare HPF (Negative); Other Cells Few Spermatozoa (Negative); RBC 0-2 HPF (0-2); WBC 0-2 HPF (0-5)
[2022-08-26 21:53] LABS: Bacteria Rare HPF (Negative); C & S Indicated? No; Crystals Negative HPF (Negative); Mucus Negative (Negative)
--- NOTE | 2022-08-26 21:53 | DI.VRAD_ITS ---
PROCEDURE INFORMATION: Exam: XR Chest Exam date and time: 08/26/2022 9:38 PM Age: 56 years old Clinical indication: Other: Nausea, vomiting, leukocytosis TECHNIQUE: Imaging protocol: Radiologic exam of the chest. Views: 2 views. COMPARISON: CR CHEST 2 VIEWS PA,LAT 09/02/2015 8:46 PM FINDINGS: Lungs: Moderate interstitial thickening/opacities greater on the right No consolidation. Pleural spaces: No pleural effusion. No pneumothorax. Heart/Mediastinum: No cardiomegaly. Bones/joints: Unremarkable. IMPRESSION: Moderate interstitial pneumonitis versus edema Dictated and Authenticated by: Kevin Giang MD. Ordering:ANDRES Cr MD
[2022-08-26 22:03] LABS: pH (Venous) 7.25 (7.31-7.41)
[2022-08-26 22:04] LABS: pCO2 (Venous) 47 mmHg (41-51)
[2022-08-26 22:05] LABS: BE (Venous) -7 mmol/L (-2-3); HCO3 (Venous) 20 mmol/L (23-28); O2 Sat (Venous) 47 %; TCO2 (Venous) 22 mmol/l (24-29); pO2 (Venous) 30 mmHg
[2022-08-26 22:33] LABS: INR 1.1 (0.9-1.1); PTT Activated 22.5 sec (21.0-27.5); Prothrombin Time 10.8 sec (9.3-11.0)
[2022-08-26] MEDS: Oseltamivir 75 MG CAP PO (22:44)
[2022-08-26 22:53] LABS: Magnesium 1.5 mg/dL (1.8-2.4); PHOSPHORUS 3.9 mg/dL (2.6-4.7)
--- NOTE | 2022-08-26 23:00 | RT.EKG_ITS ---
APPROVED REPORT Exam: Resting ECG Reason for Exam: chest pain Patient Location: E HR:89 bpm ECG Measurements Heart Rate 89 AXIS MS 183 P 51 QRSd 96 QRS -17 QT 423 T 218 QTc 516 Conclusion Sinus rhythm...normal P axis, V-rate 60- 99 Probable left atrial enlargement...P >50mS, <-0.10mV V1 Probable anterior infarct, age indeterminate...Q >35mS, T neg, V2-V5 Abnormal T, consider ischemia, lateral leads...T <-0.20mV, I aVL V5 V6 Prolonged QT interval...QTc >500mS Physician: minimal anterior elevation with t wave inversions, new.no stemi
[2022-08-26] MEDS: INSULIN REGULAR IN 0.9 % NACL 100 UNIT/100 ML BAG IV (23:16)
--- NOTE | 2022-08-26 23:20 | NUR.NOTE ---
Nursing Note: 2315 : STARTED INSULIN DRIP PER PABLO PROTOCOL @ 4 UNITS/MLS PER HOUR
[2022-08-26 23:52] LABS: Troponin I 395 ng/L (<or=60)
[2022-08-27] VITALS (92 sets, daily range): BP systolic 104–140; BP diastolic 47–72; PULSE 59–96; RESP 7–36; TEMP 36.3–37.4; O2SAT 62–98
--- NOTE | 2022-08-27 00:23 | HPE_ITS ---
Date of service: 08/27/22 Time of Service: 00:24 Assessment and Plan Assessment and plan (1) Non-ST elevation [place] (NSTEMI): Status: Acute Assessment and plan: NSTEMI: Will continue heparin and ASA, hold Plavix per Cardiology. Hopefully can be transferred in AM for cath but no beds yet. Will try to add beta naima as hemodynamics permit (2) DKA (diabetic ketoacidosis): Status: Acute Assessment and plan: Will continue insulin drip. Fluids may present some challenge as unclear what CXR findings indicate, but clinically he is not behaving as pulmonary edema so will continue hydration as component of regimen for DKA. Will add 20 KCL to fluids as initial K<5.3. (3) Flu: Status: Acute Assessment and plan: Continue Tamiflu. CXR findings not typical for bacterial superinfection, will hold on empiric antibiotics. Repeat CXR in AM, check Procal. History of Present Illness History of Present Illness Chief Complaint: nausea, CP Narrative: 56 male with type 1 DM. Here with several weeks of nausea and one day of CP. Also endorses some dry cough. In ER initial findings of note for EKG with diffuse TW changes and troponin 299; glucose 526 with HCO3 23 and AG 13, with pH 7.25 and urine + for ketones; CXR with diffuse interstitial pattern, pneumonitis vs pulmonary edema; and + flu swab. Numerous facilities were contacted throughout [place] for transfer and there was no bed availability. Patient was given ASA (Plavix held per Cardiology recommendation) and started on heparin qtt; given NS bolus and started on insulin qtt; and started on Tamiflu. At present states CP has largely resolved (has lasted some number of hours) but feels thirsty. Denies SOB or orthopnea at this time. Given inability to develop transfer I was asked to evaluate for admission. 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 Peripheral neuropathy b. Insulin dependent Anxiety (Chronic) Hypertension (Chronic) Hyperlipidemia (Chronic) Acute osteomyelitis of right foot (Acute 01/21/14) a. diabetic toe ulcer b. MSSA c. wet gangrene d. 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, right foot Social History Smoking/Tobacco Use Status: Never Smokeless tobacco user: chewing tobacco Smoking risk assessment performed?: Yes Drug use: Never Do you feel safe in your relationship?: Yes Meds Allergies and Home Medications Allergies Allergy/AdvReac Type Severity Reaction Status Date / Time cinnamon Allergy Intermediate rash in Verified 08/26/22 20:15 mouth Home Medications Medication Instructions Recorded Confirmed Type glucose 4 gram chewable tablet 4 gm PO BID PRN ##60 10/31/17 08/26/22 History lancets (OneTouch UltraSoft #100 ea 05/21/18 08/26/22 Rx Lancets) [id number] 12 0.2 - 1 ml intra-cavernosal DAILY 02/19/19 08/26/22 Rx mg-1 mg-10 mcg/mL intracavernosal PRN erect dysf #10 mL soln sildenafil (pulm.hypertension) 20 20 - 100 mg PO DAILY PRN sexual 05/21/19 08/26/22 Rx mg tablet activity #30 tabs blood sugar diagnostic (OneTouch #300 ea 06/16/20 08/26/22 Rx Ultra Blue Test Strip) amlodipine 5 mg tablet See Rx Instructions .Route 11/02/21 08/26/22 Rx .COMPLEX #90 tabs gabapentin 800 mg tablet 1,600 mg PO HS #180 tab-caps 11/26/21 08/26/22 Rx (Neurontin) levothyroxine 75 mcg capsule 75 mcg PO DAILY #90 caps 01/14/22 08/26/22 Rx pen needle, diabetic 31 gauge x #400 ea 02/05/22 08/26/22 Rx 1/3 dulaglutide 4.5 mg/0.5 mL 4.5 mg (0.5 mL) subcut QWEEK #2 mL 03/07/22 08/26/22 Rx subcutaneous pen injector (Trulicity) insulin aspart U-100 100 unit/mL 6 - 9 unit (0.06 - 0.09 mL) subcut 03/07/22 08/26/22 Rx (3 mL) subcutaneous pen (Novolog 0800,1200,1700 #10 mL Flexpen U-100 Insulin aspart) mirtazapine 45 mg tablet 45 mg PO DAILY #90 tabs 03/07/22 08/26/22 Rx pravastatin 20 mg tablet 20 mg PO QPM #90 tab-caps 03/07/22 08/26/22 Rx amitriptyline 10 mg tablet 10 mg PO HS #90 tab-caps 06/11/22 08/26/22 Rx clonazepam 1 mg tablet (Klonopin) 1 mg PO DAILY PRN anxiety #30 06/11/22 08/26/22 Rx tab-caps empagliflozin 10 mg tablet 10 mg PO DAILY #30 tabs 06/11/22 08/26/22 Rx (Jardiance) insulin glargine 100 unit/mL (3 27 unit (0.27 mL) subcut HS #6 06/11/22 08/26/22 Rx mL) subcutaneous pen (Lantus vials Solostar U-100 Insulin) pantoprazole 40 mg tablet,delayed 40 mg PO DAILY ##90 06/11/22 08/26/22 Rx release sertraline 100 mg tablet (Zoloft) 200 mg PO DAILY #180 tab-caps 0908/26/22 Rx losartan 100 1 tab PO DAILY #90 tabs 07/08/22 08/26/22 Rx mg-hydrochlorothiazide 12.5 mg tablet blood-glucose meter #1 ea 07/15/22 08/26/22 Rx Exam Narrative Exam Narrative: 150/79, 90, 36.7, 18, 95% RA. HEENT dry oral mucosa; neck supple; lungs clear; heart RRR w/o MRG; abdomen soft and NT; extremities w/o edema; neuro Ox3, lucid, moves all 4s Results Labs Result diagrams: 08/26/22 20:10 08/26/22 20:10 Labs: Laboratory Results - last 24 hr 08/26/22 08/26/22 08/26/22 20:10 20:10 20:10 WBC 18.05 H RBC 4.90 Hgb 14.1 Hct 43.8 MCV 89 MCH 28.8 MCHC 32.2 RDW 13.1 Plt Count 300 MPV 11.0 Immature Gran % 0.5 Neutrophils % 81.9 Lymphocytes % 15.3 Monocytes % 2.1 Eosinophils % 0.0 Basophils % 0.2 Nucleated RBC % 0.0 Absolute Neutrophils 14.78 H Absolute Lymphocytes 2.76 Absolute Monocytes 0.38 Absolute Eosinophils 0.00 Absolute Basophils 0.04 PT INR APTT VBG pH VBG pCO2 VBG pO2 VBG HCO3 VBG Total CO2 VBG O2 Saturation VBG Base Excess Sodium 136 Potassium 5.0 Chloride 99 Carbon Dioxide 23.5 Anion Gap 13.5 H BUN 26 H Creatinine 1.9 H Est GFR (CKD-EPI 2020) 40.89 Glucose 582 H* Calcium 9.2 Phosphorus Magnesium Total Bilirubin 0.5 AST 20 ALT 23 Alkaline Phosphatase 91 Troponin I 299 H* Total Protein 7.5 Albumin 3.6 Lipase 27 Urine Color Urine Clarity Urine pH Ur Specific [place] Urine Protein Urine Ketones Urine Blood Urine Nitrite Urine Bilirubin Urine Urobilinogen Ur Leukocyte Esterase Urine RBC Urine WBC Ur Epithelial Cells Urine Crystals Urine Bacteria Urine Mucus Urine Other Ur Culture Indicated? Urine Glucose COVID-19 Source SARS-CoV-2 (PCR) Influenza Type A (PCR) Influenza Type B (PCR) RSV (PCR) 08/26/22 08/26/22 08/26/22 20:10 20:10 21:04 WBC RBC Hgb Hct MCV MCH MCHC RDW Plt Count MPV Immature Gran % Neutrophils % Lymphocytes % Monocytes % Eosinophils % Basophils % Nucleated RBC % Absolute Neutrophils Absolute Lymphocytes Absolute Monocytes Absolute Eosinophils Absolute Basophils PT 10.8 INR 1.1 APTT 22.5 VBG pH VBG pCO2 VBG pO2 VBG HCO3 VBG Total CO2 VBG O2 Saturation VBG Base Excess Sodium Potassium Chloride Carbon Dioxide Anion Gap BUN Creatinine Est GFR (CKD-EPI 2020) Glucose Calcium Phosphorus 3.9 Magnesium 1.5 L Total Bilirubin AST ALT Alkaline Phosphatase Troponin I Total Protein Albumin Lipase Urine Color Urine Clarity Urine pH Ur Specific [place] Urine Protein Urine Ketones Urine Blood Urine Nitrite Urine Bilirubin Urine Urobilinogen Ur Leukocyte Esterase Urine RBC Urine WBC Ur Epithelial Cells Urine Crystals Urine Bacteria Urine Mucus Urine Other Ur Culture Indicated? Urine Glucose COVID-19 Source Nasopharynx SARS-CoV-2 (PCR) Negative Influenza Type A (PCR) Positive A Influenza Type B (PCR) Negative RSV (PCR) Negative 08/26/22 08/26/22 08/26/22 21:29 21:50 23:27 WBC RBC Hgb Hct MCV MCH MCHC RDW Plt Count MPV Immature Gran % Neutrophils % Lymphocytes % Monocytes % Eosinophils % Basophils % Nucleated RBC % Absolute Neutrophils Absolute Lymphocytes Absolute Monocytes Absolute Eosinophils Absolute Basophils PT INR APTT VBG pH 7.25 L VBG pCO2 47 VBG pO2 30 L* VBG HCO3 20 L VBG Total CO2 22 L VBG O2 Saturation 47 VBG Base Excess -7 L Sodium Potassium Chloride Carbon Dioxide Anion Gap BUN Creatinine Est GFR (CKD-EPI 2020) Glucose Calcium Phosphorus Magnesium Total Bilirubin AST ALT Alkaline Phosphatase Troponin I 395 H* Total Protein Albumin Lipase Urine Color Yellow Urine Clarity Clear Urine pH 6.0 Ur Specific [place] 1.015 Urine Protein 30 H Urine Ketones 15 H Urine Blood Trace-intact H Urine Nitrite Negative Urine Bilirubin Negative Urine Urobilinogen 0.2 Ur Leukocyte Esterase Negative Urine RBC 0-2 Urine WBC 0-2 Ur Epithelial Cells Rare Urine Crystals Negative Urine Bacteria Rare Urine Mucus Negative Urine Other Few [place] Ur Culture Indicated? No Urine Glucose 500 H COVID-19 Source SARS-CoV-2 (PCR) Influenza Type A (PCR) Influenza Type B (PCR) RSV (PCR) Last Vital Signs Temp 36.7 C 08/26/22 20:11 Pulse 90 08/26/22 23:16 Resp 18 08/26/22 23:16 BP 150/79 H 12/05/22 23:16 Pulse Ox 95 08/26/22 23:16
[2022-08-27] MEDS: Metoprolol 25 MG TAB (01:18)
[2022-08-27] MEDS: Metoprolol 12.5 MG TAB PO ×3 (01:19→13:44)
[2022-08-27 01:29] LABS: NT-proBNP 21940 pg/mL (<300)
[2022-08-27 01:36] LABS: Procalcitonin 0.5 ng/mL
[2022-08-27 02:56] LABS: Anion Gap 11.9 mmol/L (3-11); BUN 26 mg/dL (7-18); CO2 24.1 mmol/L (21.0-32.0); CREATININE 1.7 mg/dL (0.70-1.30); Calcium 9.1 mg/dL (8.5-10.1); Chloride 101 mmol/L (98-107); Estimated GFR 46.73 (mL/min/1.73m2); Glucose 423 mg/dL (74-106); Potassium 4.4 mmol/L (3.5-5.1); Sodium 137 mmol/L (136-145)
[2022-08-27] MEDS: POTASSIUM CHLORIDE/0.9% NACL 1,000 ML 250 MEQ IV (03:00)
--- NOTE | 2022-08-27 04:35 | NUR.NOTE ---
Nursing Note: Insulin infusion maintained at current rate.
--- NOTE | 2022-08-27 05:16 | NUR.NOTE ---
Nursing Note: Patient continuously exposing his private areas. Hospital pants placed on to prevent exposure of genitals after frequent reminders. Insulin drip titrated per protocol.
--- NOTE | 2022-08-27 06:15 | RT.EKG_ITS ---
APPROVED REPORT Exam: Resting ECG Reason for Exam: NSTEMI Patient Location: I HR:82 bpm ECG Measurements Heart Rate 82 AXIS MI 169 P 58 QRSd 91 QRS -25 QT 372 T 75 QTc 435 Conclusion Sinus rhythm...normal P axis, V-rate 50- 99 Multiple ventricular premature complexes...V complexes w/ short R-R intervls Borderline left axis deviation...QRS axis (-15,-29) Low voltage, extremity leads...all extremity leads <0.5mV Anteroseptal infarct, old...Q >40mS, V1-V2 Nonspecific T abnormalities, lateral leads...T <-0.10mV, I aVL V5 V6 Baseline wander in lead(s) V2
[2022-08-27] MEDS: POTASSIUM CHLORIDE/D5-0.45NACL 1,000 ML 100 MEQ IV (06:31)
--- NOTE | 2022-08-27 06:45 | W.PULMCC ---
General Date of Service Date of service: 08/27/22 Time of Service: 06:46 Reason for Admission to ICU: NSTEMI Hyperglycemia Assessment and Plan Assessment and plan (1) Non-ST elevation [place] (NSTEMI): Status: Acute (2) Flu: Status: Acute (3) Hyperglycemia: Status: Acute (4) Mural thrombus of cardiac apex: Status: Acute (5) Heart failure with reduced ejection fraction: Status: Acute (6) Pulmonary hypertension: Status: Acute (7) Acute kidney injury superimposed on CKD: Status: Acute Assessment and plan: This is a 56 yo with type 1 NSTEMI causing wall motion abnormalities and a mural thrombus found to have the flu and hyperglycemia (not true DKA). He has been accepted for transfer to [facility] for cath today. He was not in DKA, he just had hyperglycemia (normal bicarb, minimal urine ketones). He is off the insulin drip and I discontinued the fluids. He is volume overloaded. He does have a negative fluid balance currently, which is good. Recommendations Pulmonary: No acute concerns Cardiac: Type 1 NSTEMI - on heparin gtt - on ASA - hemodynamically stable - transfering to [facility] for cath Mural thrombus - on heparin drip as above Pulmonary hypertension - likely group 2, further outpatient assessment by cards recommended HFrEF - goal directed care per cardiology after cath - on beta naima and ASA Renal: RASHAAD - in setting of [place] - likely congestive - recommend negative fluid balance with diuresis if needed I&O: Intake & Output 08/24/22 08/25/22 08/26/22 08/27/22 23:59 23:59 23:59 23:59 Intake Total 1876.400 / 1876.400 Output Total 5020 / 5020 Balance -3143.600 / -3143.600 Weight 87 kg 53.5 kg Daily Fluid Goal:: negative 1L in 24 hours Date of Last Bowel Movement: 08/26/22 Infectious Disease: Influenza A - on Tamiflu - supportive Hematologic: no acute concerns Neurologic: no acute concerns Endocrine: Hyperglycemia - off insulin gtt - recommend home insulin regimen Lines: PIV Prophylaxis: on heparin gtt and protonix (home med) Code Status: Resuscitation Status DNR/DNI Subjective Critical and life-threatening events over the past 24 hours: This is a 56 yo with DM1 who presented with several weeks of nausea and a day of chest pains. His EKG was significant for anterolateral T wave inversions with an elevated troponin and bnp. He was found to have hyperglycemia and was started on a DKA protocol, although he did not have DKA. He did test positive for the flu. [facility] [place] and he is planned for transfer today for cath. They recommended ASA and holding Plavix. He was also started on some beta blockade. I ordered him for an echo first thing this morning that was completed and found EF 45%, wall motion abnormalities and an apical mural thrombus as well as RVSP 52. Patient was sleeping and non participatory during my interview. Exam Narrative Exam Narrative: Gen: NAD, normal respiratory effort, well-nourished HENT: PERRL, nasal turbinates normal without erythema or inflammation, moist oral mucosa, Mallampati 2, No LAD or JVD Chest: No respiratory distress, normal appearance of chest, clear to auscultation bilaterally, no crackles or wheezes, normal inspiratory effort Heart: regular rate and rhythym, no murmurs, rubs or gallops Abdomen: Non-distended, soft, non tender Extremities: No clubbing, + edema, no cyanosis, rashes Neuro: AAOx3 , non focal Psych: cooperative, appropriate mental affect Most Recent VS/Results Last Vital Signs Temp 36.4 C L 08/27/22 06:39 Pulse 93 H 08/27/22 04:01 Resp 21 08/27/22 04:30 BP 104/70 08/27/22 04:01 Pulse Ox 95 08/27/22 02:30 Laboratory Results - last 24 hr 08/26/22 08/26/22 08/26/22 20:10 20:10 20:10 WBC 18.05 H RBC 4.90 Hgb 14.1 Hct 43.8 MCV 89 MCH 28.8 MCHC 32.2 RDW 13.1 Plt Count 300 MPV 11.0 Immature Gran % 0.5 Neutrophils % 81.9 Lymphocytes % 15.3 Monocytes % 2.1 Eosinophils % 0.0 Basophils % 0.2 Nucleated RBC % 0.0 Absolute Neutrophils 14.78 H Absolute Lymphocytes 2.76 Absolute Monocytes 0.38 Absolute Eosinophils 0.00 Absolute Basophils 0.04 PT INR APTT VBG pH VBG pCO2 VBG pO2 VBG HCO3 VBG Total CO2 VBG O2 Saturation VBG Base Excess Sodium 136 Potassium 5.0 Chloride 99 Carbon Dioxide 23.5 Anion Gap 13.5 H BUN 26 H Creatinine 1.9 H Est GFR (CKD-EPI 2020) 40.89 Glucose 582 H* Calcium 9.2 Phosphorus Magnesium Total Bilirubin 0.5 AST 20 ALT 23 Alkaline Phosphatase 91 Troponin I 299 H* NT-Pro-B Natriuret Pep Total Protein 7.5 Albumin 3.6 Lipase 27 Procalcitonin Urine Color Urine Clarity Urine pH Ur Specific [place] Urine Protein Urine Ketones Urine Blood Urine Nitrite Urine Bilirubin Urine Urobilinogen Ur Leukocyte Esterase Urine RBC Urine WBC Ur Epithelial Cells Urine Crystals Urine Bacteria Urine Mucus Urine Other Ur Culture Indicated? Urine Glucose COVID-19 Source SARS-CoV-2 (PCR) Influenza Type A (PCR) Influenza Type B (PCR) RSV (PCR) 08/26/22 08/26/22 08/26/22 20:10 20:10 20:19 WBC RBC Hgb Hct MCV MCH MCHC RDW Plt Count MPV Immature Gran % Neutrophils % Lymphocytes % Monocytes % Eosinophils % Basophils % Nucleated RBC % Absolute Neutrophils Absolute Lymphocytes Absolute Monocytes Absolute Eosinophils Absolute Basophils PT 10.8 INR 1.1 APTT 22.5 VBG pH VBG pCO2 VBG pO2 VBG HCO3 VBG Total CO2 VBG O2 Saturation VBG Base Excess Sodium Potassium Chloride Carbon Dioxide Anion Gap BUN Creatinine Est GFR (CKD-EPI 2020) Glucose Calcium Phosphorus 3.9 Magnesium 1.5 L Total Bilirubin AST ALT Alkaline Phosphatase Troponin I NT-Pro-B Natriuret Pep Total Protein Albumin Lipase Procalcitonin Urine Color Cancelled Urine Clarity Cancelled Urine pH Cancelled Ur Specific [place] Cancelled Urine Protein Cancelled Urine Ketones Cancelled Urine Blood Cancelled Urine Nitrite Cancelled Urine Bilirubin Cancelled Urine Urobilinogen Cancelled Ur Leukocyte Esterase Cancelled Urine RBC Urine WBC Ur Epithelial Cells Urine Crystals Urine Bacteria Urine Mucus Urine Other Ur Culture Indicated? Urine Glucose Cancelled COVID-19 Source SARS-CoV-2 (PCR) Influenza Type A (PCR) Influenza Type B (PCR) RSV (PCR) 08/26/22 08/26/22 08/26/22 21:04 21:29 21:50 WBC RBC Hgb Hct MCV MCH MCHC RDW Plt Count MPV Immature Gran % Neutrophils % Lymphocytes % Monocytes % Eosinophils % Basophils % Nucleated RBC % Absolute Neutrophils Absolute Lymphocytes Absolute Monocytes Absolute Eosinophils Absolute Basophils PT INR APTT VBG pH 7.25 L VBG pCO2 47 VBG pO2 30 L* VBG HCO3 20 L VBG Total CO2 22 L VBG O2 Saturation 47 VBG Base Excess -7 L Sodium Potassium Chloride Carbon Dioxide Anion Gap BUN Creatinine Est GFR (CKD-EPI 2020) Glucose Calcium Phosphorus Magnesium Total Bilirubin AST ALT Alkaline Phosphatase Troponin I NT-Pro-B Natriuret Pep Total Protein Albumin Lipase Procalcitonin Urine Color Yellow Urine Clarity Clear Urine pH 6.0 Ur Specific [place] 1.015 Urine Protein 30 H Urine Ketones 15 H Urine Blood Trace-intact H Urine Nitrite Negative Urine Bilirubin Negative Urine Urobilinogen 0.2 Ur Leukocyte Esterase Negative Urine RBC 0-2 Urine WBC 0-2 Ur Epithelial Cells Rare Urine Crystals Negative Urine Bacteria Rare Urine Mucus Negative Urine Other Few [place] Ur Culture Indicated? No Urine Glucose 500 H COVID-19 Source Nasopharynx SARS-CoV-2 (PCR) Negative Influenza Type A (PCR) Positive A Influenza Type B (PCR) Negative RSV (PCR) Negative 08/26/22 08/27/22 08/27/22 23:27 01:00 01:00 WBC RBC Hgb Hct MCV MCH MCHC RDW Plt Count MPV Immature Gran % Neutrophils % Lymphocytes % Monocytes % Eosinophils % Basophils % Nucleated RBC % Absolute Neutrophils Absolute Lymphocytes Absolute Monocytes Absolute Eosinophils Absolute Basophils PT INR APTT VBG pH VBG pCO2 VBG pO2 VBG HCO3 VBG Total CO2 VBG O2 Saturation VBG Base Excess Sodium Potassium Chloride Carbon Dioxide Anion Gap BUN Creatinine Est GFR (CKD-EPI 2020) Glucose Calcium Phosphorus Magnesium Total Bilirubin AST ALT Alkaline Phosphatase Troponin I 395 H* NT-Pro-B Natriuret Pep 46961 H Total Protein Albumin Lipase Procalcitonin 0.5 Urine Color Urine Clarity Urine pH Ur Specific [place] Urine Protein Urine Ketones Urine Blood Urine Nitrite Urine Bilirubin Urine Urobilinogen Ur Leukocyte Esterase Urine RBC Urine WBC Ur Epithelial Cells Urine Crystals Urine Bacteria Urine Mucus Urine Other Ur Culture Indicated? Urine Glucose COVID-19 Source SARS-CoV-2 (PCR) Influenza Type A (PCR) Influenza Type B (PCR) RSV (PCR) 08/27/22 02:33 WBC RBC Hgb Hct MCV MCH MCHC RDW Plt Count MPV Immature Gran % Neutrophils % Lymphocytes % Monocytes % Eosinophils % Basophils % Nucleated RBC % Absolute Neutrophils Absolute Lymphocytes Absolute Monocytes Absolute Eosinophils Absolute Basophils PT INR APTT VBG pH VBG pCO2 VBG pO2 VBG HCO3 VBG Total CO2 VBG O2 Saturation VBG Base Excess Sodium 137 Potassium 4.4 Chloride 101 Carbon Dioxide 24.1 Anion Gap 11.9 H BUN 26 H Creatinine 1.7 H Est GFR (CKD-EPI 2020) 46.73 Glucose 423 H Calcium 9.1 Phosphorus Magnesium Total Bilirubin AST ALT Alkaline Phosphatase Troponin I NT-Pro-B Natriuret Pep Total Protein Albumin Lipase Procalcitonin Urine Color Urine Clarity Urine pH Ur Specific [place] Urine Protein Urine Ketones Urine Blood Urine Nitrite Urine Bilirubin Urine Urobilinogen Ur Leukocyte Esterase Urine RBC Urine WBC Ur Epithelial Cells Urine Crystals Urine Bacteria Urine Mucus Urine Other Ur Culture Indicated? Urine Glucose COVID-19 Source SARS-CoV-2 (PCR) Influenza Type A (PCR) Influenza Type B (PCR) RSV (PCR) Review of Systems Unobtainable due to (noncooperative) Time spent with patient Time spent in Critical Care: 40 Time spent in Critical care included: Chart review, Documenting critically ill care, Time at immediate bedside and Discussing critically ill care with other medical staff Multi-Disciplinary Checklist Lines/Tubes CENTRAL LINE: no ARTERIAL LINE: no LEUNG: no ENDOTRACHEAL TUBE: no ICU Maintenance GLUCOSE 140-180mg/dL: no, Reason/Intervention: elevated, getting lantus and SSI NUTRITION AT GOAL: yes PRESSURE ULCER: no RESTRAINTS: no ANTIBIOTICS(if yes, consider Stewardship): No Social Issues FAMILY UPDATED: no, Reason/Intervention: patient able to do PT/OT: no, Reason/Intervention: patient transferring today GOALS/DISPOSITION/HEATER INSTALLER: yes CODE STATUS: DNR/DNI Prophylaxis DVT PROPHYLAXIS: yes GI PROPHYLAXIS: yes, Indication: home medication
--- NOTE | 2022-08-27 06:59 | NUR.NOTE ---
Nursing Note: Spoke with Dr Anthony, informed that MIVF had been changed, Uncooperative with care and displaying genital regions. Levothyroxine held due to patient with c/o nausea. 12-Lead EKG done per order.
[2022-08-27 07:01] LABS: Anion Gap 8.4 mmol/L (3-11); BUN 27 mg/dL (7-18); CO2 26.6 mmol/L (21.0-32.0); CREATININE 1.8 mg/dL (0.70-1.30); Calcium 9.4 mg/dL (8.5-10.1); Chloride 106 mmol/L (98-107); Estimated GFR 43.63 (mL/min/1.73m2); Glucose 208 mg/dL (74-106); Potassium 4.2 mmol/L (3.5-5.1); Sodium 141 mmol/L (136-145)
[2022-08-27 07:05] LABS: Lab Add On Test DONE
[2022-08-27 07:07] LABS: Troponin I 594 ng/L (<or=60)
[2022-08-27 07:41] LABS: Hemoglobin A1C > 13.0 % (<5.7)
[2022-08-27] MEDS: Normal Saline Flush 10 ML SYR (07:47)
[2022-08-27] MEDS: Aspirin 325 MG TAB PO (08:26)
[2022-08-27] MEDS: MAGNESIUM SULFATE 4 GM/100 ML BAG IVPB (08:27)
[2022-08-27] MEDS: Pantoprazole 40 MG TABCR PO (08:27)
[2022-08-27] MEDS: Levothyroxine 25 MCG TAB 75 MCG PO (08:30)
--- NOTE | 2022-08-27 08:30 | DI.RAD_ITS ---
Exam(s) XR PORTABLE CHEST AP EXAM: XR PORTABLE CHEST AP CLINICAL HISTORY: diffuse interstial pattern, NSTEMI and flu TECHNIQUE: 2D digital imaging was performed of the chest. One image was obtained. An AP view was ob tained. COMPARISON: CR,XR XR CHEST 2V PA LATERAL from 08/26/2022 FINDINGS: MEDIASTINUM: Normal. HEART: Normal. PULMONARY VASCULATURE: Normal. LUNGS: Stable persistent interstitial infiltrates. No focal consolidating infiltrates are seen. PLEURAL SPACE: No pleural effusion or pneumothorax. BONE:Within normal limits for the patient's age. OTHER FINDINGS:Normal. IMPRESSION: Stable appearance of the chest compared to 08/26/2022. DATA REPOSITORY: RADIATION DOSE DELIVERED:
--- NOTE | 2022-08-27 08:30 | RT.EKG_ITS ---
APPROVED REPORT Exam: Resting ECG Reason for Exam: Increased TNI. Patient Location: I HR:85 bpm ECG Measurements Heart Rate 85 AXIS VA 163 P 66 QRSd 71 QRS -8 QT 490 T 88 QTc 583 Conclusion Sinus rhythm...normal P axis, V-rate 50- 99 Ventricular premature complex...V complex w/ short R-R interval Low voltage, extremity leads...all extremity leads <0.5mV Nonspecific T abnormalities, lateral leads...T <-0.10mV, I aVL V5 V6
[2022-08-27] MEDS: Insulin Glargine 300 UNITS/3 ML PEN 20 UNITS SC (08:54)
--- NOTE | 2022-08-27 09:10 | DI.US_ITS ---
APPROVED REPORT EXAM: Comprehensive 2D, Doppler, and color-flow Echocardiogram Patient Location: In-Patient Room/Bed: RKQ060 Rn Homecare: Katiuska Cardoza RDCS (AE) Indications: NSTEMI, FLU Other Information Study Quality: Fair. Technically limited study due to body habitus, inability to position patient, un cooperative patient. Conclusion Technically difficult study The left ventricle is normal in size and wall thickness. Overall EF is approximately 45%. There are wall motion abnormalities involving the apex, anteroapical and anterolateral segments. There is an apical mural thrombus Grossly normal right ventricular size and function Both atria are normal in size There is no structural valvular disease Estimated right ventricular systolic pressure is 52 mmHg Wall motion Left Ventricle The left ventricle is normal size. Left ventricular systolic function is mildly decreased. There is n ormal left ventricular wall thickness. Regional wall motion abnormalities are noted. Left ventricular thrombus is present. LVEF is 45%. Right Ventricle The right ventricle is normal size. Right ventricular systolic function is grossly normal. Atria The left atrium size is normal. The right atrium size is normal. Aortic Valve The aortic valve is normal in structure. There is no aortic valvular stenosis. No aortic regurgitatio n is present. Mitral Valve The mitral valve is normal in structure. No evidence of mitral valve stenosis. Trace mitral regurgita tion. Tricuspid Valve The tricuspid valve is normal in structure. There is no tricuspid valve stenosis. Mild tricuspid regu rgitation. Pulmonic Valve The pulmonary valve is normal in structure. There is no pulmonic valvular stenosis. Trace pulmonic re gurgitation. Great Vessels The aortic root is normal in size. The ascending aorta is normal in size. Aortic arch is not visualiz ed. The IVC was not visualized patient uncooperative. Pericardium Very limited subcostal imaging. 2D Dimensions IVSD d PLAX 0.93 cm M: 0.6-1.2 LV Vol A2C d MOD 116.7 mL LVPW d PLAX 0.96 cm M: 0.6 - 1.2 LV Vol A4C d MOD 100.5 mL LVID d PLAX 4.79 cm M: 4.2 - 5.8 LA vol/ BSA A4C s A-L 21.7 mL/m2 LVDs 3.55 cm M: 2.5 - 4.0 LA Area A4C s MOD 15.34 cm2 Ao Root d 2.92 cm M: 3.1 - 3.7 LV EF A4C MOD 42.9 % Ao Asc Diam d 3.11 cm M: 2.6 - 3.4 LV EF A2C MOD 43.4 % LV EF Teichholz 49.2 % LV EF Biplane MOD 42.7 % LVEF (Zarate's) 42.74 % M: 52 - 72 SV 48.34 mL LV Volume 90.23 mL M: 62 - 150 SV Index 28.79 mL/m2 LV Volume Index 53.70 mL/m2 M: 34 - 74 LV Vol Biplane MOD 113.1 mL FS 24.85 % M-Mode TAPSE 2.53 cm (M/F) >1.7 LV Diastology MV E' medial 0.095 (>0.07 m/s) E/A Ratio 1.6 LV E/e MED 8.40 (<14) MV E Vmax 0.79 (0.4-1.3 m/s) MV E' lateral 0.108 (>0.1 m/s) MV A Vmax 0.50 (0.4-1.3 m/s) LV E/e LAT 7.35 (<14) MV E/A Ratio 1.48 MV E/E' medial 8.41 MV E/E' lateral 7.39 Aortic Valve LVOT Area 3.40 cm2 AoV Area Vmax 2.81 cm2 LVOT Vmax 0.89 m/s AoV Area/ BSA (Vmax) 1.67 cm2/m2 LVOT Mean Benigno. 0.62 m/s FREDERIC Mean Benigno. 2.76 cm2 LVOT Peak Grad 3.2 mmHg FREDERIC Mean Benigno. Index 1.65 cm2/m2 LVOT Mean Grad 1.7 mmHg LVOT VTI 0.170 m LVOT Diam s 2.05 cm AoV Vmax 1.08 m/s Velocity Ratio 0.82 AoV Mean Benigno. 0.76 m/s AoV Peak Grad 4.6 mmHg LVOT SV 57.80 mL AoV Mean Grad 2.6 mmHg AoV VTI 0.184 m AoV Area VTI 3.13 cm2 AoV Area/ BSA (VTI) 1.87 cm/m2 Mitral Valve MV DT 140 (160-240 msec) MV PHT 40 msec MV Area PHT 5.44 cm2 MV VTI 0.190 m MV Area VTI 3.04 (4.0-6.0 cm2) Pulmonary Valve PV Vmax 0.99 (0.5-1.5 m/s) RVOT Peak Gr. 2.72 mmHg PV Peak Grad 3.9 mmHg RVOT Mean Gr. 1.60 mmHg PV Mean Grad 2.5 mmHg RVOT VTI 0.210 m PV VTI 0.203 m RVOT Vmax 0.82 m/s Tricuspid Valve TR Peak Grad 49.5 mmHg TR Vmax 3.52 m/s
[2022-08-27 10:03] LABS: Lab Add On Test DONE
--- NOTE | 2022-08-27 10:03 | INITIAL_ITS ---
- If Service Date Differs Date of service: 08/27/22 Time of Service: 10:03 Care Management Initial Assess REASON FOR HOSPITALIZATION:: NSTEMI, DKA, Flu PAST MEDICAL HISTORY/PAST SURGICAL HISTORY:: All Active Problems . Non-ST elevation HI (NSTEMI) (Acute). DKA (diabetic ketoacidosis) (Acute). Flu (Acute). Screening for colon cancer (Acute). Memory loss (Acute). Noncompliance (Acute). Elevation of level of transaminase and lactic acid dehydrogenase (LDH) (Acute 04/08/11). Anxiety (Acute 05/05/13). Type 2 diabetes, uncontrolled, with ulcer of toe (Acute 02/09/14). Type II diabetes mellitus with neurological manifestations, uncontrolled (Acute 02/09/14). Reflux esophagitis (Acute 09/04/15). 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 Male erectile disorder (Acute 09/09/13). resume triple P. Hyperlipidemia with target LDL less than 100 (Acute 05/05/13). Essential hypertension (Acute 08/24/13). Depressive disorder (Acute 05/05/13). Autonomic neuropathy in diseases classified elsewhere (Acute 02/09/14). Diabetes mellitus (Chronic). a. Peripheral neuropathy. b. Insulin dependent. Anxiety (Chronic). Hypertension (Chronic). Hyperlipidemia (Chronic). Acute osteomyelitis of right foot (Acute 01/21/14). a. diabetic toe ulcer. b. MSSA. c. wet gangrene. d. right second toe amputation 01/27/2014. Claustrophobia (Chronic). DKA (diabetic ketoacidoses) (Acute). Depression (Acute). Postprandial epigastric pain (Acute). Medical History . Osteomyelitis of second toe of right f oot. Surgical History . History of amputation. 2nd toe, right foot PREVIOUS FUNCTIONAL STATUS/SOCIAL/FAMILY SUPPORTS:: Narciso lives in [place]. CURRENT FUNCTIONAL STATUS:: Patient is being closely monitored and treated in the ICU. [facility] and is unava ilable to meet with CM. ADVANCE DIRECTIVES:: On file, [facility] is Jack Pang. Agent is Tyrone Russo. Has patient been provided with info about the portal/API?: Yes Did the patient sign up for the portal?: No CODE STATUS:: DNR/DNI INSURANCE COVERAGE / FINANCIAL ISSUES:: Medicare PRIMARY CARE PHYSICIAN:: Dr. Dmitriy Oliver, [facility]. PATIENT/FAMILY EDUCATION NEEDS:: Review transfer instructions. Discuss ask me three. TRANSPORTATION:: EMS PLAN:: Narciso is accepted to [facility] in [place]. RN Display [employer] Outside is in the process of coordinating EMS transfortation. CM to follow.
--- NOTE | 2022-08-27 10:15 | DSE_ITS ---
Date of service: 08/27/22 Time of Service: 10:16 DS: Diagnosis Discharge Diagnosis (1) Non-ST elevation AR (NSTEMI): Status: Acute (2) DKA (diabetic ketoacidosis): Status: Deleted (3) Flu: Status: Acute Discharge Plan Disposition Patient Disposition: Transfer-Acute Inpatient Care Specific Acute Inpt Facility: Other Condition: Serious Discharge Details Reason For Visit: NSTEMI, Hyperglycemia, Influenza A Admit Date/Time: 08/27/22 00:39 Admit Provider: Jeb Corbin Attending Provider: Jeb Corbin Primary Care Provider: Dmitriy Oliver Hospital Course Hospital Course: This is a 56 year old male with DM2, noncompliance with medications, depressive disorder, HTN, HLD, ED, GERD. He presented with several weeks of nausea and one day of chest pain. Also endorses some dry cough. In ER initial findings of note for EKG with diffuse T-wave changes and troponin 299; glucose 526 with HCO3 23 and AG 13. VBG pH 7.25 and urine + for ketones; CXR with diffuse interstitial pattern, pneumonitis vs pulmonary edema; and + flu A swab. Numerous facilities were contacted throughout [place] but no bed availability except for [facility] in [facility]. However, given he was dxd has being in DKA, he could not be admitted to the bed they had available. Patient was given ASA (Plavix held per Cardiology recommendation) and started on heparin qtt; given NS bolus and started on insulin qtt; and started on Tamiflu. Upon admission to the hospitalist service it was noted that his CP has largely resolved (had lasted some number of hours). Denied SOB or orthopnea Overnight his glucose normalized and he was place on AC sliding scale insulin and glargine. He had little appetite but tolerated liquids. No N/V. His next troponin levels were?395 >> 594 >> 651. Echocardiogram: The left ventricle is normal in size and wall thickness.? Overall EF is approximately 45%.? There are wall motion abnormalities involving the apex, anteroapical and anterolateral segments.? There is an apical mural thrombus The diagnosis of DKA was not accurate given his bicarb was not elevated and his anion gap was marginal only at 13. [facility] then did accept him for admission. Transportation was arranged. Home Meds and New Rx's Prescriptions: No Action rnhfl-[id number]-pxocgth-water 12 mg-1 mg- 10 mcg/mL solution 0.2 - 1 ml IC DAILY PRN (Reason: erect dysf) Qty: 10 3RF Rx Instructions: increase by 0.1 ml each dose until adequate erection sildenafil (pulm.hypertension) 20 mg tablet 20 - 100 mg PO DAILY PRN (Reason: sexual activity) Qty: 30 5RF (DME) OneTouch Ultra Blue Test Strip Strip See Rx Instructions .ROUTE .MEDSUPPLY Qty: 300 3RF Rx Instructions: test TID Trulicity 4.5 mg/0.5 mL pen injector 4.5 mg subcut QWEEK Qty: 2 11RF insulin aspart U-100 [Novolog Flexpen U-100 Insulin] 100 unit/mL (3 mL) insulin pen 6 - 9 unit Sub-Q 0800,1200,1700 Qty: 10 5RF Rx Instructions: hold if not eating E11.9 pravastatin 20 mg tablet 20 mg PO QPM Qty: 90 4RF mirtazapine 45 mg tablet 45 mg PO DAILY Qty: 90 3RF insulin glargine [Lantus Solostar U-100 Insulin] 100 unit/mL (3 mL) insulin pen 27 unit Sub-Q HS Qty: 6 4RF clonazepam [Klonopin] 1 mg tablet 1 mg PO DAILY PRN (Reason: anxiety) Qty: 30 2RF Rx Instructions: dose reduction pantoprazole 40 mg tablet,delayed release (DR/EC) 40 mg PO DAILY Qty: 90 3RF sertraline [Zoloft] 100 mg tablet 200 mg PO DAILY Qty: 180 4RF amitriptyline 10 mg tablet 10 mg PO HS Qty: 90 3RF Jardiance 10 mg tablet 10 mg PO DAILY Qty: 30 2RF glucose 4 GM tablet,chewable 4 gm PO BID PRNQty: 60 (DME) lancets [OneTouch UltraSoft Lancets] 1 EACH misc 1 ea Miscellaneous BID Qty: 100 12RF Rx Instructions: E11.9 amlodipine 5 mg tablet See Rx Instructions .ROUTE .COMPLEX Qty: 90 3RF Dose Instruction: TAKE ONE TABLET BY MOUTH EVERY DAY Rx Instructions: TAKE ONE TABLET BY MOUTH EVERY DAY gabapentin [Neurontin] 800 mg tablet 1,600 mg PO HS Qty: 180 3RF Rx Instructions: two at hs levothyroxine 75 mcg capsule 75 mcg PO DAILY Qty: 90 3RF (DME) pen needle, diabetic 31 gauge x 1/3 needle 1 ea Sub-Q TID Qty: 400 3RF Rx Instructions: inject QID losartan-hydrochlorothiazide 100-12.5 mg tablet 1 tab PO DAILY Qty: 90 3RF (DME) blood-glucose meter Misc 1 ea Miscellaneous ONCE Qty: 1 0RF Rx Instructions: METER TYPE ONE TOUCH ULTRA MINI DIAGNOSIs: E11.9 Discharge Instructions Activity:: Bedbound Equipment/Supplies:: No Equipment Needed Diet:: As Tolerated Discharge Orders Discharge Orders: Discharge Order (Routine); Ordered 08/27/22 Ordered By: Joshua Anthony DS: Summary Time Spent with Patient providing and/or coordinating discharge services: Greater than 30 minutes Status at Discharge Functional status at discharge: independent ambulation Overall status at discharge: patient is not back to baseline Mental Status: other Speech and Movement: slowed movement Mood: other Affect: blunted Exam Psych Mental Status: other Speech and Movement: slowed movement Mood: other Affect: blunted DS: Data Vitals/I&O Vitals and I&O: Vital Signs Temperature 37.4 C 08/27/22 07:49 Temperature Source Temporal Artery Scan 08/27/22 07:49 Pulse 88 08/27/22 08:41 Pulse 86 08/27/22 09:45 Respiratory Rate 17 08/27/22 09:45 Respiratory Effort 08/27/22 07:49 Respiratory Depth Normal 08/27/22 07:49 Respiratory Pattern Normal 08/27/22 07:49 Blood Pressure 120/62 08/27/22 08:41 Blood Pressure Mean 75 08/27/22 08:41 Blood Pressure Position Supine 08/26/22 20:11 Pulse Oximetry 89 L 08/27/22 09:00 Oxygen Delivery Method Room Air 08/27/22 08:45 Oxygen Flow Rate 0 08/27/22 08:45 Pain Level 0 08/27/22 07:49 Intake & Output 08/26/22 08/26/22 08/27/22 11:59 23:59 11:59 Intake Total 900 / Output Total 5020 / 5020 Balance 1999. -3024.100 / -3024.100 Weight 87 kg 86.4 kg Intake: IV 1999. 945.900 / 945.900 Other 1050 / 1050 Output: Urine 5020 / 5020 Other: Urine Color Pale Urine Appearance Clear Urine Odor Normal Comment FC/concentrated yellow urine. Stool Size Large Stool Characteristics Liquid Emesis Description Retching Undigested Food Data Completed and Pending Labs on day of discharge: Labs from last 24 hours 08/27/22 08/27/22 08/27/22 Unknown 11:00 11:00 WBC Pending RBC Pending Hgb Pending Hct Pending MCV Pending MCH Pending MCHC Pending RDW Pending Plt Count Pending MPV Pending Immature Gran % Pending Neutrophils % Pending Lymphocytes % Pending Monocytes % Pending Eosinophils % Pending Basophils % Pending Nucleated RBC % Absolute Neutrophils Pending Absolute Lymphocytes Pending Absolute Monocytes Pending Absolute Eosinophils Pending Absolute Basophils Pending PT INR APTT VBG pH VBG pCO2 VBG pO2 VBG HCO3 VBG Total CO2 VBG O2 Saturation VBG Base Excess Sodium Potassium Chloride Carbon Dioxide Anion Gap BUN Creatinine Est GFR (CKD-EPI 2020) Glucose Hemoglobin A1c Calcium Phosphorus Magnesium Total Bilirubin AST ALT Alkaline Phosphatase Troponin I Pending NT-Pro-B Natriuret Pep Total Protein Albumin Lipase Procalcitonin TSH Urine Color Urine Clarity Urine pH Ur Specific [place] Urine Protein Urine Ketones Urine Blood Urine Nitrite Urine Bilirubin Urine Urobilinogen Ur Leukocyte Esterase Urine RBC Urine WBC Ur Epithelial Cells Urine Crystals Urine Bacteria Urine Mucus Urine Other Ur Culture Indicated? Urine Glucose COVID-19 Source SARS-CoV-2 (PCR) Influenza Type A (PCR) Influenza Type B (PCR) RSV (PCR) Add-On Test Request DONE 08/27/22 08/27/22 08/27/22 07:03 06:30 06:30 WBC RBC Hgb Hct MCV MCH MCHC RDW Plt Count MPV Immature Gran % Neutrophils % Lymphocytes % Monocytes % Eosinophils % Basophils % Nucleated RBC % Absolute Neutrophils Absolute Lymphocytes Absolute Monocytes Absolute Eosinophils Absolute Basophils PT INR APTT 40.0 H VBG pH VBG pCO2 VBG pO2 VBG HCO3 VBG Total CO2 VBG O2 Saturation VBG Base Excess Sodium Potassium Chloride Carbon Dioxide Anion Gap BUN Creatinine Est GFR (CKD-EPI 2020) Glucose Hemoglobin A1c Calcium Phosphorus Magnesium Total Bilirubin AST ALT Alkaline Phosphatase Troponin I NT-Pro-B Natriuret Pep Total Protein Albumin Lipase Procalcitonin TSH Pending Urine Color Urine Clarity Urine pH Ur Specific [place] Urine Protein Urine Ketones Urine Blood Urine Nitrite Urine Bilirubin Urine Urobilinogen Ur Leukocyte Esterase Urine RBC Urine WBC Ur Epithelial Cells Urine Crystals Urine Bacteria Urine Mucus Urine Other Ur Culture Indicated? Urine Glucose COVID-19 Source SARS-CoV-2 (PCR) Influenza Type A (PCR) Influenza Type B (PCR) RSV (PCR) Add-On Test Request DONE 08/27/22 08/27/22 08/27/22 06:30 06:30 02:33 WBC RBC Hgb Hct MCV MCH MCHC RDW Plt Count MPV Immature Gran % Neutrophils % Lymphocytes % Monocytes % Eosinophils % Basophils % Nucleated RBC % Absolute Neutrophils Absolute Lymphocytes Absolute Monocytes Absolute Eosinophils Absolute Basophils PT INR APTT VBG pH VBG pCO2 VBG pO2 VBG HCO3 VBG Total CO2 VBG O2 Saturation VBG Base Excess Sodium 141 137 Potassium 4.2 4.4 Chloride 106 101 Carbon Dioxide 26.6 24.1 Anion Gap 8.4 11.9 H BUN 27 H 26 H Creatinine 1.8 H 1.7 H Est GFR (CKD-EPI 2020) 43.63 46.73 Glucose 208 H 423 H Hemoglobin A1c Calcium 9.4 9.1 Phosphorus Magnesium Total Bilirubin AST ALT Alkaline Phosphatase Troponin I 594 H* NT-Pro-B Natriuret Pep Total Protein Albumin Lipase Procalcitonin TSH Urine Color Urine Clarity Urine pH Ur Specific [place] Urine Protein Urine Ketones Urine Blood Urine Nitrite Urine Bilirubin Urine Urobilinogen Ur Leukocyte Esterase Urine RBC Urine WBC Ur Epithelial Cells Urine Crystals Urine Bacteria Urine Mucus Urine Other Ur Culture Indicated? Urine Glucose COVID-19 Source SARS-CoV-2 (PCR) Influenza Type A (PCR) Influenza Type B (PCR) RSV (PCR) Add-On Test Request 08/27/22 08/27/22 08/26/22 01:00 01:00 23:27 WBC RBC Hgb Hct MCV MCH MCHC RDW Plt Count MPV Immature Gran % Neutrophils % Lymphocytes % Monocytes % Eosinophils % Basophils % Nucleated RBC % Absolute Neutrophils Absolute Lymphocytes Absolute Monocytes Absolute Eosinophils Absolute Basophils PT INR APTT VBG pH VBG pCO2 VBG pO2 VBG HCO3 VBG Total CO2 VBG O2 Saturation VBG Base Excess Sodium Potassium Chloride Carbon Dioxide Anion Gap BUN Creatinine Est GFR (CKD-EPI 2020) Glucose Hemoglobin A1c Calcium Phosphorus Magnesium Total Bilirubin AST ALT Alkaline Phosphatase Troponin I 395 H* NT-Pro-B Natriuret Pep 47376 H Total Protein Albumin Lipase Procalcitonin 0.5 TSH Urine Color Urine Clarity Urine pH Ur Specific [place] Urine Protein Urine Ketones Urine Blood Urine Nitrite Urine Bilirubin Urine Urobilinogen Ur Leukocyte Esterase Urine RBC Urine WBC Ur Epithelial Cells Urine Crystals Urine Bacteria Urine Mucus Urine Other Ur Culture Indicated? Urine Glucose COVID-19 Source SARS-CoV-2 (PCR) Influenza Type A (PCR) Influenza Type B (PCR) RSV (PCR) Add-On Test Request 08/26/22 08/26/22 08/26/22 21:50 21:29 21:04 WBC RBC Hgb Hct MCV MCH MCHC RDW Plt Count MPV Immature Gran % Neutrophils % Lymphocytes % Monocytes % Eosinophils % Basophils % Nucleated RBC % Absolute Neutrophils Absolute Lymphocytes Absolute Monocytes Absolute Eosinophils Absolute Basophils PT INR APTT VBG pH 7.25 L VBG pCO2 47 VBG pO2 30 L* VBG HCO3 20 L VBG Total CO2 22 L VBG O2 Saturation 47 VBG Base Excess -7 L Sodium Potassium Chloride Carbon Dioxide Anion Gap BUN Creatinine Est GFR (CKD-EPI 2020) Glucose Hemoglobin A1c Calcium Phosphorus Magnesium Total Bilirubin AST ALT Alkaline Phosphatase Troponin I NT-Pro-B Natriuret Pep Total Protein Albumin Lipase Procalcitonin TSH Urine Color Yellow Urine Clarity Clear Urine pH 6.0 Ur Specific [place] 1.015 Urine Protein 30 H Urine Ketones 15 H Urine Blood Trace-intact H Urine Nitrite Negative Urine Bilirubin Negative Urine Urobilinogen 0.2 Ur Leukocyte Esterase Negative Urine RBC 0-2 Urine WBC 0-2 Ur Epithelial Cells Rare Urine Crystals Negative Urine Bacteria Rare Urine Mucus Negative Urine Other Few [place] Ur Culture Indicated? No Urine Glucose 500 H COVID-19 Source Nasopharynx SARS-CoV-2 (PCR) Negative Influenza Type A (PCR) Positive A Influenza Type B (PCR) Negative RSV (PCR) Negative Add-On Test Request 08/26/22 08/26/22 08/26/22 20:19 20:10 20:10 WBC RBC Hgb Hct MCV MCH MCHC RDW Plt Count MPV Immature Gran % Neutrophils % Lymphocytes % Monocytes % Eosinophils % Basophils % Nucleated RBC % Absolute Neutrophils Absolute Lymphocytes Absolute Monocytes Absolute Eosinophils Absolute Basophils PT INR APTT VBG pH VBG pCO2 VBG pO2 VBG HCO3 VBG Total CO2 VBG O2 Saturation VBG Base Excess Sodium Potassium Chloride Carbon Dioxide Anion Gap BUN Creatinine Est GFR (CKD-EPI 2020) Glucose Hemoglobin A1c > 13.0 H Calcium Phosphorus 3.9 Magnesium 1.5 L Total Bilirubin AST ALT Alkaline Phosphatase Troponin I NT-Pro-B Natriuret Pep Total Protein Albumin Lipase Procalcitonin TSH Urine Color Cancelled Urine Clarity Cancelled Urine pH Cancelled Ur Specific [place] Cancelled Urine Protein Cancelled Urine Ketones Cancelled Urine Blood Cancelled Urine Nitrite Cancelled Urine Bilirubin Cancelled Urine Urobilinogen Cancelled Ur Leukocyte Esterase Cancelled Urine RBC Urine WBC Ur Epithelial Cells Urine Crystals Urine Bacteria Urine Mucus Urine Other Ur Culture Indicated? Urine Glucose Cancelled COVID-19 Source SARS-CoV-2 (PCR) Influenza Type A (PCR) Influenza Type B (PCR) RSV (PCR) Add-On Test Request 08/26/22 08/26/22 08/26/22 20:10 20:10 20:10 WBC 18.05 H RBC 4.90 Hgb 14.1 Hct 43.8 MCV 89 MCH 28.8 MCHC 32.2 RDW 13.1 Plt Count 300 MPV 11.0 Immature Gran % 0.5 Neutrophils % 81.9 Lymphocytes % 15.3 Monocytes % 2.1 Eosinophils % 0.0 Basophils % 0.2 Nucleated RBC % 0.0 Absolute Neutrophils 14.78 H Absolute Lymphocytes 2.76 Absolute Monocytes 0.38 Absolute Eosinophils 0.00 Absolute Basophils 0.04 PT 10.8 INR 1.1 APTT 22.5 VBG pH VBG pCO2 VBG pO2 VBG HCO3 VBG Total CO2 VBG O2 Saturation VBG Base Excess Sodium Potassium Chloride Carbon Dioxide Anion Gap BUN Creatinine Est GFR (CKD-EPI 2020) Glucose Hemoglobin A1c Calcium Phosphorus Magnesium Total Bilirubin AST ALT Alkaline Phosphatase Troponin I 299 H* NT-Pro-B Natriuret Pep Total Protein Albumin Lipase Procalcitonin TSH Urine Color Urine Clarity Urine pH Ur Specific [place] Urine Protein Urine Ketones Urine Blood Urine Nitrite Urine Bilirubin Urine Urobilinogen Ur Leukocyte Esterase Urine RBC Urine WBC Ur Epithelial Cells Urine Crystals Urine Bacteria Urine Mucus Urine Other Ur Culture Indicated? Urine Glucose COVID-19 Source SARS-CoV-2 (PCR) Influenza Type A (PCR) Influenza Type B (PCR) RSV (PCR) Add-On Test Request 08/26/22 20:10 WBC RBC Hgb Hct MCV MCH MCHC RDW Plt Count MPV Immature Gran % Neutrophils % Lymphocytes % Monocytes % Eosinophils % Basophils % Nucleated RBC % Absolute Neutrophils Absolute Lymphocytes Absolute Monocytes Absolute Eosinophils Absolute Basophils PT INR APTT VBG pH VBG pCO2 VBG pO2 VBG HCO3 VBG Total CO2 VBG O2 Saturation VBG Base Excess Sodium 136 Potassium 5.0 Chloride 99 Carbon Dioxide 23.5 Anion Gap 13.5 H BUN 26 H Creatinine 1.9 H Est GFR (CKD-EPI 2020) 40.89 Glucose 582 H* Hemoglobin A1c Calcium 9.2 Phosphorus Magnesium Total Bilirubin 0.5 AST 20 ALT 23 Alkaline Phosphatase 91 Troponin I NT-Pro-B Natriuret Pep Total Protein 7.5 Albumin 3.6 Lipase 27 Procalcitonin TSH Urine Color Urine Clarity Urine pH Ur Specific [place] Urine Protein Urine Ketones Urine Blood Urine Nitrite Urine Bilirubin Urine Urobilinogen Ur Leukocyte Esterase Urine RBC Urine WBC Ur Epithelial Cells Urine Crystals Urine Bacteria Urine Mucus Urine Other Ur Culture Indicated? Urine Glucose COVID-19 Source SARS-CoV-2 (PCR) Influenza Type A (PCR) Influenza Type B (PCR) RSV (PCR) Add-On Test Request PFSH All Active Problems (Updated 08/27/22 @ 13:06 by Lorraine Zambrano MD) Pulmonary hypertension (Acute) Heart failure with reduced ejection fraction (Acute) Acute kidney injury superimposed on CKD (Acute) Mural thrombus of cardiac apex (Acute) Hyperglycemia (Acute) Non-ST elevation AR (NSTEMI) (Acute) Flu (Acute) Screening for colon cancer (Acute) Memory loss (Acute) Noncompliance (Acute) Elevation of level of transaminase and lactic acid dehydrogenase (LDH) (Acute 04/08/11) Anxiety (Acute 05/05/13) Type 2 diabetes, uncontrolled, with ulcer of toe (Acute 02/09/14) Type II diabetes mellitus with neurological manifestations, uncontrolled (Acute 02/09/14) Reflux esophagitis (Acute 09/04/15) 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 Peripheral neuropathy b. Insulin dependent Anxiety (Chronic) Hypertension (Chronic) Hyperlipidemia (Chronic) Acute osteomyelitis of right foot (Acute 01/21/14) a. diabetic toe ulcer b. MSSA c. wet gangrene d. 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, right foot Social History Smoking/Tobacco Use Status: Never Smokeless tobacco user: chewing tobacco Smoking risk assessment performed?: Yes Drug use: Never Do you feel safe in your relationship?: Yes
[2022-08-27] MEDS: Tamsulosin 0.4 MG CAPCR PO (10:38)
[2022-08-27] MEDS: Ondansetron 4 MG/2 ML VIAL IVP (10:39)
[2022-08-27] MEDS: Sertraline 100 MG TAB 200 MG PO (10:50)
[2022-08-27] MEDS: Oseltamivir 75 MG CAP PO (10:52)
[2022-08-27 11:51] LABS: Troponin I 651 ng/L (<or=60)
[2022-08-27 12:46] LABS: HGB 13.1 g/dL (13.5-17.5); MCH 29.5 pg (27.0-33.0); MCHC 33.6 % (32.0-36.0); MCV 88 fL (80-95); MPV 11.4 fL (8.0-11.0); Platelet Count 321 10^3/uL (130-400); RBC 4.44 10^6/uL (4.36-5.78); RDW 13.3 % (11.8-14.1); RDW-SD 42.8 fL; WBC 21.41 10^3/uL (4.4-10.8)
[2022-08-27 12:58] LABS: Absolute Lymphocyte Count 3.85 10^3/uL (1.2-3.4); Absolute Monocyte Count 0.86 10^3/uL (0.1-0.8)
[2022-08-27 12:59] LABS: Diff Comment Manual Differential; RBC Morphology Normal
[2022-08-27] MEDS: cefTRIAXone 1 GM/50 ML BAG IVPB (14:41)
[2022-08-27 15:49] LABS: PTT Activated 59.7 sec (21.0-27.5)
[2022-08-27] MEDS: LORazepam 1 MG TAB PO (17:15)
[2022-08-27] MEDS: LORazepam 2 MG/ML VIAL 1 MG IVP (17:34)
--- NOTE | 2022-08-28 08:41 | PDOC.CMDIS ---
- If Service Date Differs Date of service: 08/27/22 Time of Service: 08:41 LACE Index Scoring Tool - Questions: Length of Stay (in days): 1 Acuity (Admit via E.D.?): Yes E.D. Visits: 1 - Answers: Total Score: 5 Risk of Readmission: Low Risk Care Management Discharge Reason for Hospitalization: NSTEMI, DKA, Flu Discharge Plan: Narciso is transferred to [facility] via EMS. Patient/Family Education Needs: Review transfer instructions. Discuss ask me three. Services Needed at Discharge: Transportation (EMS, arranged by RN Contact Center Team Lead.)
== END 2022-08-27 17:45 | disposition short-term general hospital (02) | DRG 281 ==
LOC: ER 08-27 01:32 → ICU 08-27 01:52
PROVIDERS: Family Medicine; Admitting Provider General Practice; Emergency Provider Physician Assistant; PCP Family Medicine; Visit Provider General Practice
DX: I21.4 Non-ST elevation (NSTEMI) myocardial infarction (principal); I13.0 Hypertensive heart and chronic kidney disease with heart failure and stage 1 through stage 4 chronic kidney disease, or unspecified chronic kidney disease; I50.20 Unspecified systolic (congestive) heart failure; N17.9 Acute kidney failure, unspecified; Z79.4 Long term (current) use of insulin; Z79.85 Long-term (current) use of injectable non-insulin antidiabetic drugs; Z79.84 Long term (current) use of oral hypoglycemic drugs; J10.1 Influenza due to other identified influenza virus with other respiratory manifestations; Z91.14 Patient's other noncompliance with medication regimen; F41.9 Anxiety disorder, unspecified; E11.40 Type 2 diabetes mellitus with diabetic neuropathy, unspecified; E78.5 Hyperlipidemia, unspecified; F32.A Depression, unspecified; R41.3 Other amnesia; N18.9 Chronic kidney disease, unspecified; E11.22 Type 2 diabetes mellitus with diabetic chronic kidney disease; E11.65 Type 2 diabetes mellitus with hyperglycemia; I27.22 Pulmonary hypertension due to left heart disease
CPT/HCPCS: 36415; 36416; 51702; 80048; 80053; 82805; 82962; 83690; 84145; 87637; 93005; 93306; 96361; 96365; 96366; 99291; 71045; 71046; 81003; 81015; 83036; 83735; 83880; 84100; 84443; 84484; 85025; 85610; 85730; 93010; 99235; J0696; J0780; J2060; J2405; J3475; J3490